=== PATIENT | female | born 1930 | race Caucasian/White ===

== ENCOUNTER 2016-06-12 08:48 | Emergency (ER) | payer OTHER, MEDICARE ==
[2016-06-12 08:54] VITALS: RESP 16
--- NOTE | 2016-06-12 09:14 | CPEKG ---
Heart Rate: 69 RR Interval: 870 P-R Interval: 200 QRSD Interval: 80 QT Interval: 412 QTC Interval: 442 P [place]: 65 QRS [place]: -11 T Wave [place]: 36 EKG Severity - BORDERLINE ECG - EKG Impression: SINUS RHYTHM EKG Impression: PROBABLE LEFT ATRIAL ABNORMALITY Electronically Signed By: Ottoniel Klien 12-Jun-2016 14:32:14
[2016-06-12 09:27] LABS: % IMMATURE GRANULYOCYTES 0.4 % (0.0-1.1); ABSOLUTE IMMATURE GRANULOCYTES 0.03 10^3/uL (0.00-0.10); ADD DIFF? NO; ADD MORPH? NO; ADD SCAN? NO; ATYPICAL LYMPHOCYTE FLAG 10 (0-99); FRAGMENT RBC FLAG 0 (0-99); HEMATOCRIT 46.4 % (38.0-47.0); HEMOGLOBIN 15.6 g/dL (12.6-16.3); LEFT SHIFT FLG 0 (0-99); LIPEMIA HEMOLYSIS FLAG 80 (0-99); MEAN CELL HEMOGLOBIN 33.7 pg (27.9-34.1); MEAN CELL HEMOGLOBIN CONCENTR. 33.6 g/dL (32.4-36.7); MEAN CELL VOLUME 100.2 fL (81.5-99.8); MEAN PLATELET VOLUME 10.3 fL (8.7-11.7); PLATELET CLUMPS FLAG 10 (0-99); PLATELET COUNT 146 10^3/uL (150-400); RED BLOOD CELL COUNT 4.63 10^6/uL (4.18-5.33); RED CELL DISTRIBUTION WIDTH 12.6 % (11.5-15.2)
[2016-06-12 09:55] LABS: ANION GAP 12 mEq/L (8-16); CALCIUM 9.9 mg/dL (8.5-10.4); CARBON DIOXIDE 26 mEq/l (22-31); CHLORIDE 104 mEq/L (97-110); CREATININE 0.8 mg/dL (0.6-1.0); GLOMERULAR FILTRATION RATE > 60; GLUCOSE 96 mg/dL (70-100); POTASSIUM 4.4 mEq/L (3.5-5.2); SODIUM 142 mEq/L (134-144)
[2016-06-12] MEDS ORDERED: NS 1,000 ML IV ONE (10:02)
[2016-06-12 10:22] LABS: COLOR YELLOW; LEUKOCYTE ESTERASE,URINE 3+ (NEGATIVE); NITRITE,URINE POSITIVE (NEGATIVE)
[2016-06-12 10:28] LABS: BACTERIA TRACE /hpf (NONE SEEN); RBC,URINE 15-25 /hpf (0-3); WBC,URINE 50-182 /hpf (0-3)
[2016-06-12] MEDS ORDERED: MECLIZINE HCL 25 MG TAB PO ONE (11:40)
[2016-06-12 11:58] VITALS: BP 161/106; PULSE 69; O2SAT 93
--- NOTE | 2016-06-12 13:15 | EDPHY ---
H & P Stated Complaint: DIZZY, DUFF SINCE LAST NIGHT Time Seen by Provider: 06/12/16 09:03 HPI/ROS: CHIEF COMPLAINT: Dizziness HISTORY OF PRESENT ILLNESS: The patient presents to the ED with a 1 day history of dizziness and mild vertigo. The patient denies any history of fall or trauma. She did complain of a mild headache. The patient does have a history of frequent urinary tract infections but denies any symptoms of dysuria currently. Patient has no complaints of abdominal pain, vomiting, diarrhea or recent medication changes. The patient does report some mild exacerbation of her symptoms with positional changes. The patient denies any additional acute complaints. REVIEW OF SYSTEMS: A comprehensive 10 point review of systems is otherwise negative aside from elements mentioned in the history of present illness. Source: Patient Exam Limitations: No limitations - Personal History Current Tetanus/Diphtheria Vaccine: Yes Current Tetanus Diphtheria and Acellular Pertussis (TDAP): Yes Tetanus Vaccine Date: 2012 - Medical/Surgical History Hx Asthma: No Hx Chronic Respiratory Disease: No Hx Diabetes: No Hx Cardiac Disease: Yes Hx Renal Disease: No Hx Cirrhosis: No Hx Alcoholism: No Hx HIV/AIDS: No Hx Splenectomy or Spleen Trauma: No Other PMH: HTN, Hyperlipidemia, Right breast cancer, 2 bladder surgeries, 2 back surgeries, hysterectomy - Social History Smoking Status: Never smoked - Physical Exam Exam: General Appearance: Alert, no distress Eyes: Pupils equal and round no pallor or injection ENT, Mouth: Mucous membranes moist Respiratory: There are no retractions, lungs are clear to auscultation Cardiovascular: Regular rate and rhythm Gastrointestinal: Abdomen is soft and nontender, no masses, bowel sounds normal Neurological: A&O, normal motor function, normal sensory exam, normal cranial nerves Skin: Warm and dry, no rashes Musculoskeletal: Neck is supple nontender Extremities: symmetrical, full range of motion Constitutional: Initial Vital Signs Heart Rate 78 06/12/16 08:49 Respiratory Rate 16 06/12/16 08:49 Blood Pressure 212/104 H 06/12/16 08:49 O2 Sat (%) 92 06/12/16 08:49 O2 Delivery Mode Room Air O2 (L/minute) 2 Allergies/Adverse Reactions: codeine [Codeine] Allergy (Unknown, Verified 04/06/15 12:07) morphine [Morphine] Allergy (Unknown, Verified 04/06/15 12:07) Penicillins Allergy (Unknown, Verified 04/06/15 12:07) acetaminophen [From Vicodin] Allergy (Verified 04/06/15 12:07) hydrocodone bitartrate [From Vicodin] Allergy (Verified 04/06/15 12:07) Home Medications: Medication Instructions Recorded Carvedilol [Coreg (*)] 6.25 mg PO BIDMEAL 11/26/12 Lisinopril [Zestril 5 mg (*)] 5 mg PO HS 11/26/12 Simvastatin [Zocor 40 mg] 40 mg PO DAILY18 11/26/12 Acetaminophen [Tylenol ES 500 mg 1,000 mg PO Q6 06/17/13 (*)] celeCOXIB [Celebrex (*)] 200 mg PO DAILY 06/17/13 Aspirin EC [Aspirin EC 81 mg (*)] 81 mg PO DAILY 03/20/15 Herbals/Supplements -Info Only 1 ea PO DAILY 03/20/15 Multivitamins [Multivitamin (*)] 1 each PO DAILY 03/20/15 Ondansetron Odt [Zofran Odt 4 mg 4 mg PO Q4PRN PRN #7 tab 04/06/15 (*)] Sulfamethoxazole-Tmp Inj 04/06/15 Cephalexin [Keflex (*)] 500 mg PO QID #24 cap 04/17/15 Cephalexin [Keflex] 500 mg PO TID #15 cap 06/12/16 Medical Decision Making - Diagnostics EKG Interpretation: EKG: Complete interpretation has been separately recorded in the [facility] archive. Summary impression: Sinus rhythm Imaging: CT head without contrast: Negative for intracranial hemorrhage or other acute abnormalities. Study results reviewed by myself and discussed with Dr. Nabeel Richey. ED Course/Re-evaluation: The patient presents to the ED with complaints of vague dizziness. The patient has no evidence of obvious nystagmus on exam. I find her neurologic examination to be within normal limits. Patient does complain of a mild headache, given this fact she was taken for a CT scan of her brain to exclude intracranial hemorrhage which was negative. Patient received IV fluids in the emergency department. She is noted to have evidence of a urinary tract infection despite the fact that she is asymptomatic. The patient will be started on Keflex for the next 5 days to treat her for possible UTI as an etiology of her symptoms. The patient had multiple examinations by myself in the ED over a 3 hour period is feeling much better. She continues to have a normal neurologic examination in stable vital signs. There has been no arrhythmias noted in the ED. She has no evidence of peripheral vertigo. Differential Diagnosis: Differential diagnosis considered includes metabolic abnormality, dehydration, urinary tract infection, stroke, intracranial hemorrhage, medication side effect - Data Points Laboratory Results: Laboratory Results 06/12/16 09:15 06/12/16 09:15 06/12/16 06/12/16 06/12/16 10:05 09:15 09:15 WBC 7.02 10^3/uL 10^3/uL (3.80-9.50) RBC 4.63 10^6/uL 10^6/uL (4.18-5.33) Hgb 15.6 g/dL g/dL (12.6-16.3) Hct 46.4 % % (38.0-47.0) MCV 100.2 fL H fL (81.5-99.8) MCH 33.7 pg pg (27.9-34.1) MCHC 33.6 g/dL g/dL (32.4-36.7) RDW 12.6 % % (11.5-15.2) Plt Count 146 10^3/uL L 10^3/uL (150-400) MPV 10.3 fL fL (8.7-11.7) Neut % (Auto) 68.5 % % (39.3-74.2) Lymph % (Auto) 15.4 % % (15.0-45.0) [place] % (Auto) 9.1 % % (4.5-13.0) Eos % (Auto) 6.0 % % (0.6-7.6) Baso % (Auto) 0.6 % % (0.3-1.7) Nucleat RBC Rel Count 0.0 % % (0.0-0.2) Absolute Neuts (auto) 4.81 10^3/uL 10^3/uL (1.70-6.50) Absolute Lymphs (auto) 1.08 10^3/uL 10^3/uL (1.00-3.00) Absolute Monos (auto) 0.64 10^3/uL 10^3/uL (0.30-0.80) Absolute Eos (auto) 0.42 10^3/uL H 10^3/uL (0.03-0.40) Absolute Basos (auto) 0.04 10^3/uL 10^3/uL (0.02-0.10) Absolute Nucleated RBC 0.00 10^3/uL 10^3/uL (0-0.01) Immature Gran % 0.4 % % (0.0-1.1) Immature Gran # 0.03 10^3/uL 10^3/uL (0.00-0.10) Sodium 142 mEq/L mEq/L (134-144) Potassium 4.4 mEq/L mEq/L (3.5-5.2) Chloride 104 mEq/L mEq/L (97-110) Carbon Dioxide 26 mEq/l mEq/l (22-31) Anion Gap 12 mEq/L mEq/L (8-16) BUN 16 mg/dL mg/dL (7-23) Creatinine 0.8 mg/dL mg/dL (0.6-1.0) Estimated GFR > 60 Glucose 96 mg/dL mg/dL (70-100) Calcium 9.9 mg/dL mg/dL (8.5-10.4) Urine Color YELLOW Urine Appearance HAZY Urine pH 7.0 (5.0-7.5) Ur Specific [place] 1.011 (1.002-1.030) Urine Protein NEGATIVE (NEGATIVE) Urine Ketones NEGATIVE (NEGATIVE) Urine Blood NEGATIVE (NEGATIVE) Urine Nitrate POSITIVE H (NEGATIVE) Urine Bilirubin NEGATIVE (NEGATIVE) Urine Urobilinogen NEGATIVE EU EU (0.2-1.0) Ur Leukocyte Esterase 3+ H (NEGATIVE) Urine RBC 15-25 /hpf H /hpf (0-3) Urine WBC 50-182 /hpf H /hpf (0-3) Ur Epithelial Cells TRACE /lpf /lpf (NONE-1+) Urine Bacteria TRACE /hpf H /hpf (NONE SEEN) Ur Culture Indicated? INDICATED H (NI) Urine Glucose NEGATIVE (NEGATIVE) Medications Given: Discontinued Medications Sodium Chloride (Ns) 1,000 mls @ 0 mls/hr IV ONCE ONE PRN Reason: Wide Open Stop: 06/12/16 10:03 Last Admin: 06/12/16 11:43 Dose: 1,000 mls Meclizine HCl (Meclizine Hcl) 25 mg PO EDNOW ONE Stop: 06/12/16 11:41 Last Admin: 06/12/16 11:57 Dose: 25 mg Departure - Departure Disposition: Home, Routine, Self-Care Clinical Impression: Urinary tract infection Condition: Good Instructions: Urinary Tract Infection in Women (ED) Additional Instructions: 1. Please take antibiotics as directed for next 5 days. 2. Please return to the emergency department for any worsening symptoms, severe headache, numbness, weakness or other concerns. Referrals: Avery Girard MD [Primary Care Provider] - As per Instructions Prescriptions: Cephalexin [Keflex] 500 mg PO TID #15 cap
== END 2016-06-12 12:55 | disposition home or self-care (01) ==
DX: N39.0 Urinary tract infection, site not specified (principal); I10 Essential (primary) hypertension; B96.89 Other specified bacterial agents as the cause of diseases classified elsewhere; Z85.3 Personal history of malignant neoplasm of breast; Z79.82 Long term (current) use of aspirin

== ENCOUNTER 2016-06-17 14:49 | Emergency (ER) | payer OTHER, MEDICARE ==
[2016-06-17 15:26] VITALS: RESP 16; TEMP 97.5
--- NOTE | 2016-06-17 15:55 | EDPHY ---
H & P Time Seen by Provider: 06/17/16 15:54 HPI/ROS: CHIEF COMPLAINT: back pain. HISTORY OF PRESENT ILLNESS: This is an 86-year-old female with a history of recurrent UTIs and diagnosed with UTI on Saturday who presents with continued back pain. She has been compliant with her Keflex. The pain radiates around to her groin. She is concerned she still has a urine infection and has completed the entire Keflex course. She denies increased urinary frequency, hematuria, or fever. Her symptoms are identical to her previous UTIs. REVIEW OF SYSTEMS: A complete 10-point review of systems was performed and is negative except for those items mentioned in the HPI. Past Medical/Surgical History: Hypertension, hyperlipidemia, hysterectomy, back surgeries, UTI. Social History: Nonsmoker. Smoking Status: Never smoked Physical Exam: General Appearance: Alert, no distress Eyes: Pupils equal and round, no conjunctival pallor or injection ENT, Mouth: Mucous membranes moist Neck: Normal inspection Respiratory: Lungs are clear to auscultation Cardiovascular: Regular rate and rhythm Gastrointestinal: Abdomen is soft and non-tender Neurological: A&O, nonfocal, normal gait Skin: Warm and dry, no rash Extremities: Nontender, no pedal edema Psychiatric: Mood and affect normal Constitutional: Initial Vital Signs Temperature (C) 36.4 C 06/17/16 15:24 Heart Rate 68 06/17/16 15:24 Respiratory Rate 16 06/17/16 15:24 Blood Pressure 147/89 H 06/17/16 15:24 O2 Sat (%) 93 06/17/16 15:24 O2 Delivery Mode Room Air Allergies/Adverse Reactions: codeine [Codeine] Allergy (Unknown, Verified 06/17/16 15:26) morphine [Morphine] Allergy (Unknown, Verified 06/17/16 15:26) Penicillins Allergy (Unknown, Verified 06/17/16 15:26) acetaminophen [From Vicodin] Allergy (Verified 06/17/16 15:26) hydrocodone bitartrate [From Vicodin] Allergy (Verified 06/17/16 15:26) Home Medications: Medication Instructions Recorded Carvedilol [Coreg (*)] 6.25 mg PO BIDMEAL 11/26/12 Lisinopril [Zestril 5 mg (*)] 5 mg PO HS 11/26/12 Simvastatin [Zocor 40 mg] 40 mg PO DAILY18 11/26/12 Acetaminophen [Tylenol ES 500 mg 1,000 mg PO Q6 06/17/13 (*)] celeCOXIB [Celebrex (*)] 200 mg PO DAILY 06/17/13 Aspirin EC [Aspirin EC 81 mg (*)] 81 mg PO DAILY 03/20/15 Herbals/Supplements -Info Only 1 ea PO DAILY 03/20/15 Multivitamins [Multivitamin (*)] 1 each PO DAILY 03/20/15 Ondansetron Odt [Zofran Odt 4 mg 4 mg PO Q4PRN PRN #7 tab 04/06/15 (*)] Sulfamethoxazole-Tmp Inj 04/06/15 Cephalexin [Keflex (*)] 500 mg PO QID #24 cap 04/17/15 Cephalexin [Keflex] 500 mg PO TID #15 cap 06/12/16 levOFLOXACIN [levAQUIN (*)] 750 mg PO DAILY #6 tab 06/17/16 Medical Decision Making ED Course/Re-evaluation: This patient presents with persistent urinary tract infection symptoms after recent course of Keflex. Urine culture reviewed and revealed E coli, pansensitive, although somewhat less sensitive to Keflex. I will place her on a course of Levaquin given that she has her typical urinary tract infection symptoms. Urine culture sent. Differential Diagnosis: Differential diagnosis includes though it is not limited to appendicitis, cholecystitis, diverticulitis, pyelonephritis, bowel perforation, small bowel obstruction. - Data Points Medications Given: Discontinued Medications Acetaminophen (Tylenol) 650 mg PO EDNOW ONE Stop: 06/17/16 16:34 Last Admin: 06/17/16 16:44 Dose: 650 mg Levofloxacin (Levaquin) 750 mg PO EDNOW ONE PRN Reason: Protocol Stop: 06/17/16 16:41 Last Admin: 06/17/16 16:57 Dose: 750 mg Departure - Departure Disposition: Home, Routine, Self-Care Clinical Impression: UTI (urinary tract infection) Condition: Good Instructions: Urinary Tract Infection in Women (ED) Additional Instructions: Take Levaquin as prescribed. Follow up with your primary care provider in the next 3-4 days if symptoms are not improving. Return to the emergency department if you experience any serious worsening of condition. Referrals: Avery Girard MD [Primary Care Provider] - As per Instructions Prescriptions: levOFLOXACIN [levAQUIN (*)] 750 mg PO DAILY #6 tab Report Scribed for: Sandra Avery Report Scribed by: Nicola Stewart Date of Report: 06/17/16 Time of Report: 15:55 Physician Review and Approval Statement: 06/17/16 16:01 Portions of this note were transcribed by a adjunct faculty for medical terminology. I personally performed a history, physical exam, medical decision making, and confirmed accuracy of information the transcribed note.
[2016-06-17] MEDS ORDERED: ACETAMINOPHEN 325 MG TAB PO ONE (16:33)
[2016-06-17 16:34] LABS: COLOR YELLOW; LEUKOCYTE ESTERASE,URINE TRACE (NEGATIVE); NITRITE,URINE NEGATIVE (NEGATIVE)
[2016-06-17] MEDS ORDERED: ACETAMINOPHEN 325 MG TAB ONE (16:34)
[2016-06-17] MEDS ORDERED: metroNIDAZOLE 500 MG TAB ONE (16:47)
[2016-06-17 16:51] LABS: BACTERIA TRACE /hpf (NONE SEEN); MUCUS TRACE /lpf (NONE-1+)
[2016-06-17 16:58] VITALS: BP 139/78; PULSE 82; O2SAT 94
== END 2016-06-17 16:58 | disposition home or self-care (01) ==
DX: N39.0 Urinary tract infection, site not specified (principal); B96.89 Other specified bacterial agents as the cause of diseases classified elsewhere; I10 Essential (primary) hypertension; Z79.82 Long term (current) use of aspirin

== ENCOUNTER → 2016-07-03 | Outpatient (CLI) | payer OTHER, MEDICARE | LOC: FIMAGING 10:02 | PROVIDERS: ATTEND Internal Medicine | DX: N39.0 Urinary tract infection, site not specified (principal) ==

== ENCOUNTER → 2016-08-09 | Outpatient (CLI) | payer OTHER, MEDICARE | LOC: BHFA 13:30 | PROVIDERS: ATTEND Internal Medicine Interventional Cardiology | DX: I48.91 Unspecified atrial fibrillation (principal); I10 Essential (primary) hypertension; E78.5 Hyperlipidemia, unspecified ==

== ENCOUNTER 2016-10-30 14:15 | Observation (INO) | payer OTHER, MEDICARE ==
--- NOTE | 2016-10-30 16:08 | CPEKG ---
Heart Rate: 73 RR Interval: 822 P-R Interval: 200 QRSD Interval: 76 QT Interval: 396 QTC Interval: 437 P [place]: 63 QRS [place]: -51 T Wave [place]: 43 EKG Severity - ABNORMAL ECG - EKG Impression: SINUS RHYTHM EKG Impression: PROBABLE LEFT ATRIAL ABNORMALITY EKG Impression: LEFT ANTERIOR FASCICULAR BLOCK EKG Impression: BORDERLINE R WAVE PROGRESSION, ANTERIOR LEADS Electronically Signed By: Elizabeth Grimaldo 30-Oct-2016 20:44:33
[2016-10-30 16:33] LABS: % IMMATURE GRANULYOCYTES 0.4 % (0.0-1.1); ABSOLUTE IMMATURE GRANULOCYTES 0.03 10^3/uL (0.00-0.10); ADD DIFF? NO; ADD MORPH? NO; ADD SCAN? NO; ATYPICAL LYMPHOCYTE FLAG 0 (0-99); FRAGMENT RBC FLAG 0 (0-99); HEMATOCRIT 47.8 % (38.0-47.0); HEMOGLOBIN 15.9 g/dL (12.6-16.3); LEFT SHIFT FLG 0 (0-99); LIPEMIA HEMOLYSIS FLAG 80 (0-99); MEAN CELL HEMOGLOBIN 34.8 pg (27.9-34.1); MEAN CELL HEMOGLOBIN CONCENTR. 33.3 g/dL (32.4-36.7); MEAN CELL VOLUME 104.6 fL (81.5-99.8); MEAN PLATELET VOLUME 10.5 fL (8.7-11.7); PLATELET CLUMPS FLAG 0 (0-99); PLATELET COUNT 133 10^3/uL (150-400); RED BLOOD CELL COUNT 4.57 10^6/uL (4.18-5.33); RED CELL DISTRIBUTION WIDTH 13.2 % (11.5-15.2)
[2016-10-30] MEDS ORDERED: LABETALOL HCL 50 MG/10 ML SYR IVP ONE (16:34)
--- NOTE | 2016-10-30 16:35 | EDPHY ---
H & P Stated Complaint: DIZZY, RECENT FALLS HPI/ROS: CHIEF COMPLAINT: Lightheaded, unsteady HISTORY OF PRESENT ILLNESS: Patient complains of 6 days history of feeling lightheaded and unsteady on her feet. She reports a mechanical fall on the day but did not strike her head. Since then she has felt unsteady and lightheaded. She has not been dizzy, nor does she describes a spinning sensation. She has had no headache, neck pain, chest pain or back pain. No abdominal urinary complaints. No shortness of breath. No fever chills. She denies actual visual disturbance but does have some nausea. denies any facial droop or unilateral complaints. Symptoms are worse when she attempts to move, to the point that she has to hold her spouse is hand or she will fall over. No other associated complaints or modifying factors. REVIEW OF SYSTEMS: Ten systems reviewed and are negative unless otherwise noted in the HPI PAST MEDICAL HISTORY: Hypertension, arthritis, recurrent UTIs SOCIAL HISTORY: Nonsmoker. Lives at home with her FAMILY HISTORY: Noncontributory EXAMINATION General Appearance: Alert, no distress Head: normocephalic, atraumatic Eyes: Pupils equal and round, no conjunctival pallor or injection. No nystagmus. EOMs intact. ENT, Mouth: Mucous membranes moist Neck: Normal inspection, supple, non-tender Respiratory: Lungs are clear to auscultation. No wheezing, rhonchi or crackles. Cardiovascular: Regular rate and rhythm. Grade 1 systolic murmur Gastrointestinal: Abdomen is soft and nontender Back: non-tender, no bony abnormalities Neurological: GCS 15. Cranial nerves 2-12 grossly intact. A&O, nonfocal. No pronator drift. No dysmetria. Unsteady gait Skin: Warm and dry, no rash Extremities: Nontender, no pedal edema Psychiatric: Mood and affect normal DIFFERENTIAL DIAGNOSES: Including but not limited to hypertensive emergency, hypertensive urgency, stroke, vertebrobasilar syndrome, ACS, vertigo, dehydration, UTI, weakness MDM: 4:25 p.m. Lightheadedness with recent falls and feeling unsteady on her feet. She is ataxic by my examination. Blood pressure was 183 systolic upon arrival, an 221 systolic during my examination. Will check a manual blood pressure to verify this. I have ordered CT scan of the head, chest x-ray and laboratory studies. She is awake and alert and not encephalopathic. No chest pain. EKG is unremarkable. 5:20 p.m. Laboratory studies are within normal limits. Notified at this time by Dr. Nicholas. CT scan of the head reveals no acute findings. There are white matter changes. No mass or bleed evident. I have re-evaluated the patient. She remains ataxic and unsteady. Blood pressure is currently 199/89. Heart rate is in the 60s. Proceed with admission to the hospital for further care. 5:30 p.m. I discussed case with Dr. Simons. He will admit the patient to the his service , he is requesting PCU bed an observation status. He has also requested MRI of the brain without contrast, MRA of the head and neck. These have been ordered. She can go to the floor and have these tests done while in her inpatient bed. She is admitted in stable condition comfortable this plan. EKG interpreted by: Dr. Grimaldo SUPERVISION: Case discussed with Dr. Grimaldo and he has personally examine the patient. Source: Patient, Family Exam Limitations: No limitations - Personal History Current Tetanus/Diphtheria Vaccine: Yes Current Tetanus Diphtheria and Acellular Pertussis (TDAP): Yes Tetanus Vaccine Date: 2012 - Medical/Surgical History Hx Asthma: No Hx Chronic Respiratory Disease: No Hx Diabetes: No Hx Cardiac Disease: No Hx Renal Disease: No Hx Cirrhosis: No Hx Alcoholism: No Hx HIV/AIDS: No Hx Splenectomy or Spleen Trauma: No Other PMH: HTN, Hyperlipidemia, Right breast cancer, 2 bladder surgeries, 2 back surgeries, hysterectomy - Social History Smoking Status: Never smoked Constitutional: Initial Vital Signs Temperature (C) 98.4 F 10/30/16 14:17 Heart Rate 78 10/30/16 14:17 Respiratory Rate 14 10/30/16 14:17 Blood Pressure 183/119 H 10/30/16 14:17 O2 Sat (%) 95 10/30/16 14:17 O2 Delivery Mode Room Air Allergies/Adverse Reactions: codeine [Codeine] Allergy (Unknown, Verified 10/30/16 14:17) morphine [Morphine] Allergy (Unknown, Verified 10/30/16 14:17) Penicillins Allergy (Unknown, Verified 10/30/16 14:17) acetaminophen [From Vicodin] Allergy (Verified 10/30/16 14:17) hydrocodone bitartrate [From Vicodin] Allergy (Verified 10/30/16 14:17) Home Medications: Medication Instructions Recorded Carvedilol [Coreg (*)] 6.25 mg PO BIDMEAL 11/26/12 Simvastatin [Zocor 40 mg] 40 mg PO DAILY18 11/26/12 celeCOXIB [Celebrex (*)] 200 mg PO DAILY 06/17/13 Multivitamins [Multivitamin (*)] 1 each PO DAILY 03/20/15 Acetaminophen [Tylenol ES 500 mg 500 mg PO Q6 PRN 10/30/16 (*)] Lisinopril [Zestril 10 mg (*)] 10 mg PO DAILY 10/30/16 Trimethoprim [TRIMPEX 100MG (*)] 100 mg PO DAILY 10/30/16 Medical Decision Making - Diagnostics Imaging Results: Imaging Impressions Chest X-Ray 10/30/16 16:26 Impression: Nothing acute identified. Head CT 10/30/16 16:26 Impression: 1. Mild atrophy. 2. No acute hemorrhage, hydrocephalus, or mass effect. 3. Cerebrovascular atherosclerosis. 4. No definite acute infarct. 5. Severe microvascular ischemic gliosis. 6. Consider MRI of the brain without and with contrast enhancement, if there is continued clinical concern. Findings and recommendations discussed with Emergency Department physician, Efren Stout PA-C, at 1724 hours on October 30, 2016. Final report concurs with initial preliminary interpretation. - Data Points Laboratory Results: Laboratory Results 10/30/16 16:10 10/30/16 16:10 10/30/16 10/30/16 10/30/16 17:14 16:10 16:10 WBC RBC Hgb Hct MCV MCH MCHC RDW Plt Count MPV Neut % (Auto) Lymph % (Auto) [place] % (Auto) Eos % (Auto) Baso % (Auto) Nucleat RBC Rel Count Absolute Neuts (auto) Absolute Lymphs (auto) Absolute Monos (auto) Absolute Eos (auto) Absolute Basos (auto) Absolute Nucleated RBC Immature Gran % Immature Gran # PT 13.1 SEC SEC (12.0-15.0) INR 1.00 (0.83-1.16) APTT 29.1 SEC SEC (23.0-38.0) Sodium 136 mEq/L mEq/L (134-144) Potassium 5.0 mEq/L mEq/L (3.5-5.2) Chloride 101 mEq/L mEq/L (97-110) Carbon Dioxide 21 mEq/l L mEq/l (22-31) Anion Gap 14 mEq/L mEq/L (8-16) BUN 18 mg/dL mg/dL (7-23) Creatinine 1.0 mg/dL mg/dL (0.6-1.0) Estimated GFR 53 Glucose 97 mg/dL mg/dL (70-100) Calcium 10.3 mg/dL mg/dL (8.5-10.4) Total Bilirubin 0.7 mg/dL mg/dL (0.1-1.4) Conjugated Bilirubin 0.4 mg/dL mg/dL (0.0-0.5) Unconjugated Bilirubin 0.3 mg/dL mg/dL (0.0-1.1) AST 34 IU/L IU/L (14-46) ALT 37 IU/L IU/L (9-52) Alkaline Phosphatase 54 IU/L IU/L (38-126) Troponin I < 0.012 ng/mL ng/mL (0-0.034) Total Protein 8.1 g/dL g/dL (6.3-8.2) Albumin 5.0 g/dL g/dL (3.5-5.0) Lipase 118.0 IU/L IU/L (23-300) Urine Color YELLOW Urine Appearance CLEAR Urine pH 5.0 (5.0-7.5) Ur Specific [place] 1.009 (1.002-1.030) Urine Protein NEGATIVE (NEGATIVE) Urine Ketones NEGATIVE (NEGATIVE) Urine Blood NEGATIVE (NEGATIVE) Urine Nitrate NEGATIVE (NEGATIVE) Urine Bilirubin NEGATIVE (NEGATIVE) Urine Urobilinogen NEGATIVE EU EU (0.2-1.0) Ur Leukocyte Esterase 1+ H (NEGATIVE) Urine RBC 1-3 /hpf /hpf (0-3) Urine WBC 3-5 /hpf H /hpf (0-3) Ur Epithelial Cells TRACE /lpf /lpf (NONE-1+) Urine Mucus TRACE /lpf /lpf (NONE-1+) Urine Glucose NEGATIVE (NEGATIVE) 10/30/16 16:10 WBC 6.77 10^3/uL 10^3/uL (3.80-9.50) RBC 4.57 10^6/uL 10^6/uL (4.18-5.33) Hgb 15.9 g/dL g/dL (12.6-16.3) Hct 47.8 % H % (38.0-47.0) MCV 104.6 fL H fL (81.5-99.8) MCH 34.8 pg H pg (27.9-34.1) MCHC 33.3 g/dL g/dL (32.4-36.7) RDW 13.2 % % (11.5-15.2) Plt Count 133 10^3/uL L 10^3/uL (150-400) MPV 10.5 fL fL (8.7-11.7) Neut % (Auto) 67.1 % % (39.3-74.2) Lymph % (Auto) 22.7 % % (15.0-45.0) [place] % (Auto) 7.2 % % (4.5-13.0) Eos % (Auto) 2.2 % % (0.6-7.6) Baso % (Auto) 0.4 % % (0.3-1.7) Nucleat RBC Rel Count 0.0 % % (0.0-0.2) Absolute Neuts (auto) 4.53 10^3/uL 10^3/uL (1.70-6.50) Absolute Lymphs (auto) 1.54 10^3/uL 10^3/uL (1.00-3.00) Absolute Monos (auto) 0.49 10^3/uL 10^3/uL (0.30-0.80) Absolute Eos (auto) 0.15 10^3/uL 10^3/uL (0.03-0.40) Absolute Basos (auto) 0.03 10^3/uL 10^3/uL (0.02-0.10) Absolute Nucleated RBC 0.00 10^3/uL 10^3/uL (0-0.01) Immature Gran % 0.4 % % (0.0-1.1) Immature Gran # 0.03 10^3/uL 10^3/uL (0.00-0.10) PT INR APTT Sodium Potassium Chloride Carbon Dioxide Anion Gap BUN Creatinine Estimated GFR Glucose Calcium Total Bilirubin Conjugated Bilirubin Unconjugated Bilirubin AST ALT Alkaline Phosphatase Troponin I Total Protein Albumin Lipase Urine Color Urine Appearance Urine pH Ur Specific [place] Urine Protein Urine Ketones Urine Blood Urine Nitrate Urine Bilirubin Urine Urobilinogen Ur Leukocyte Esterase Urine RBC Urine WBC Ur Epithelial Cells Urine Mucus Urine Glucose Medications Given: Discontinued Medications Labetalol HCl (Trandate Injection) 10 mg IVP ONCE ONE Stop: 10/30/16 17:01 Last Admin: 10/30/16 16:57 Dose: 10 mg Departure - Departure Disposition: [facility] Inpatient Acute Clinical Impression: Ataxia, Hypertensive urgency Condition: Good
[2016-10-30 16:44] LABS: ALANINE AMINOTRANSFERASE 37 IU/L (9-52); ALKALINE PHOSPHATASE 54 IU/L (38-126); ANION GAP 14 mEq/L (8-16); ASPARTATE AMINOTRANSFERASE 34 IU/L (14-46); BILIRUBIN,TOTAL 0.7 mg/dL (0.1-1.4); BILIRUBIN-CONJUGATED 0.4 mg/dL (0.0-0.5); BILIRUBIN-UNCONJUGATED 0.3 mg/dL (0.0-1.1); CALCIUM 10.3 mg/dL (8.5-10.4); CARBON DIOXIDE 21 mEq/l (22-31); CHLORIDE 101 mEq/L (97-110); GLOMERULAR FILTRATION RATE 53; GLUCOSE 97 mg/dL (70-100); SODIUM 136 mEq/L (134-144); TOTAL PROTEIN 8.1 g/dL (6.3-8.2)
[2016-10-30 16:45] LABS: PROTIME(PATIENT) 13.1 SEC (12.0-15.0)
[2016-10-30 16:46] LABS: APTT 29.1 SEC (23.0-38.0)
[2016-10-30 16:56] LABS: TROPONIN I < 0.012 ng/mL (0-0.034)
[2016-10-30] MEDS ORDERED: LABETALOL HCL 5 MG/ML 20 ML MDV IVP ONE (17:00)
[2016-10-30 17:23] LABS: COLOR YELLOW; LEUKOCYTE ESTERASE,URINE 1+ (NEGATIVE); NITRITE,URINE NEGATIVE (NEGATIVE)
[2016-10-30 17:25] LABS: MUCUS TRACE /lpf (NONE-1+)
[2016-10-30] MEDS ORDERED: LORazepam 2 MG/ML INJ IVP ONE (18:10)
[2016-10-30] MEDS ORDERED: LORazepam 2 MG/ML INJ ONE (18:11)
[2016-10-30] MEDS ORDERED: GADOBUTROL 10 ML VIAL IVP ONE (18:13)
[2016-10-30] MEDS ORDERED: ONDANSETRON DISINTEGRATING 4 MG TAB PO PRN (19:01)
[2016-10-30] MEDS ORDERED: ONDANSETRON 4 MG/2 ML VIAL IVP PRN (19:01)
[2016-10-30] MEDS ORDERED: MECLIZINE HCL 25 MG TAB PO ONE (19:05)
[2016-10-30] MEDS ORDERED: MECLIZINE HCL 25 MG TAB PO PRN (19:05)
[2016-10-30] MEDS ORDERED: hydrALAZINE 20 MG/ML VIAL IVP PRN (19:07)
[2016-10-30] MEDS ORDERED: LISINOPRIL 10 MG TAB PO ONE (19:15)
--- NOTE | 2016-10-30 20:31 | PDGENHP ---
History and Physical - Chief Complaint Acute ataxia - History of Present Illness primary care provider: Dr. Girard Primary digital media designer: Dr. Mora HPI: 86-year-old female presents with acute ataxia characterized as lightheadedness with unsteady gait and associated nausea onset of symptoms approximately 6 days ago and they reportedly quite sudden in their onset. reports that resulted in a mechanical fall. She denies striking her head or losing consciousness. Duration of the unsteady gait has been persistent thereafter. Patient reports exacerbation with standing and movement, somewhat alleviated by remaining supine. Patient has not yet sought medical attention for this issue. She reports she has been eating and drinking normally. She has been taking all of her home medications as prescribed. She otherwise denies any infectious symptoms. She denies any palpitations, headache, visual changes. History Information - Allergies/Home Medication List Allergies/Adverse Reactions: codeine [Codeine] Allergy (Unknown, Verified 10/30/16 14:17) morphine [Morphine] Allergy (Unknown, Verified 10/30/16 14:17) Penicillins Allergy (Unknown, Verified 10/30/16 14:17) hydrocodone bitartrate [From Vicodin] Allergy (Verified 10/30/16 14:17) Home Medications: Carvedilol [Coreg (*)] 6.25 mg PO BIDMEAL 11/26/12 [Last Taken 10/30/16 1 TAB] Simvastatin [Zocor 40 mg] 40 mg PO DAILY18 11/26/12 [Last Taken 10/29/16] celeCOXIB [Celebrex (*)] 200 mg PO DAILY 06/17/13 [Last Taken 10/30/16] Multivitamins [Multivitamin (*)] 1 each PO DAILY 03/20/15 [Last Taken 10/30/16] Acetaminophen [Tylenol ES 500 mg (*)] 500 mg PO Q6 PRN 10/30/16 [Last Taken 03/08] Lisinopril [Zestril 10 mg (*)] 10 mg PO DAILY 10/30/16 [Last Taken 10/30/16] Trimethoprim [TRIMPEX 100MG (*)] 100 mg PO DAILY 10/30/16 [Last Taken 10/30/16] I have personally reviewed and updated: family history, medical history, social history, surgical history - Past Medical History atrial fibrillation Additional medical history: Aortic insufficiency. Hypertension. Hyperlipidemia. Peptic ulcer disease. Osteoarthritis. Coronary artery disease. Vasovagal syncope in 2013. Breast cancer. Recurrent urinary tract infections - Surgical History Additional surgical history: bladder. Hysterectomy. Back surgery x2. Right breast lumpectomy. Rotator cuff - Family History Additional family history: colon cancer and breast cancer both her family - Social History Smoking Status: Never smoked Alcohol Use: Rarely Drug Use: None Additional social history: patient is normally able to ambulate and transfer independently Review of Systems ROS: 10pt was reviewed & negative except for what was stated in HPI & below Gastrointestinal: Reports: nausea Neurological: Reports: other ( dizziness, ataxia) Physical Exam Temp Pulse Resp BP Pulse Ox 36.9 C 90 16 171/107 H 95 10/30/16 14:17 10/30/16 17:18 10/30/16 16:00 10/30/16 17:33 10/30/16 14:17 Constitutional: no apparent distress, appears nourished, not in pain, other ( elderly appearing), No uncomfortable Eyes: PERRL, anicteric sclera, EOMI Ears, Nose, Mouth, Throat: moist mucous membranes, hearing normal, ears appear normal, no oral mucosal ulcers Cardiovascular: regular rate and rhythym, systolic murmur ( 2/6 at the left sternal border), No carotid bruit, No tachycardia, No edema Respiratory: no respiratory distress, no rales or rhonchi, clear to auscultation Gastrointestinal: normoactive bowel sounds, soft, non-tender abdomen, no palpable masses Genitourinary: no bladder fullness, no bladder tenderness Skin: warm, normal color, no rashes or abrasions, no fluctuance, no induration, No mottled Musculoskeletal: other ( full range of motion of the neck without any pain on flexion and rotation) Neurologic: AAOx3, sensation intact bilaterally, CN II-XII Intact, other ( normal [id number]), No weakness ( motor strength 5/5 bilateral upper and lower extremities) Psychiatric: interacting appropriately, not anxious, not encephalopathic, thought process linear, other ( 3/3 naming) Lab Data & Imaging Review 10/30/16 16:10 10/30/16 16:10 WBC 6.77 10^3/uL (3.80-9.50) 10/30/16 16:10 RBC 4.57 10^6/uL (4.18-5.33) 10/30/16 16:10 Hgb 15.9 g/dL (12.6-16.3) 10/30/16 16:10 Hct 47.8 % (38.0-47.0) H 10/30/16 16:10 MCV 104.6 fL (81.5-99.8) H 10/30/16 16:10 MCH 34.8 pg (27.9-34.1) H 10/30/16 16:10 MCHC 33.3 g/dL (32.4-36.7) 10/30/16 16:10 RDW 13.2 % (11.5-15.2) 10/30/16 16:10 Plt Count 133 10^3/uL (150-400) L 10/30/16 16:10 MPV 10.5 fL (8.7-11.7) 10/30/16 16:10 Neut % (Auto) 67.1 % (39.3-74.2) 10/30/16 16:10 Lymph % (Auto) 22.7 % (15.0-45.0) 10/30/16 16:10 [place] % (Auto) 7.2 % (4.5-13.0) 10/30/16 16:10 Eos % (Auto) 2.2 % (0.6-7.6) 10/30/16 16:10 Baso % (Auto) 0.4 % (0.3-1.7) 10/30/16 16:10 Nucleat RBC Rel Count 0.0 % (0.0-0.2) 10/30/16 16:10 Absolute Neuts (auto) 4.53 10^3/uL (1.70-6.50) 10/30/16 16:10 Absolute Lymphs (auto) 1.54 10^3/uL (1.00-3.00) 10/30/16 16:10 Absolute Monos (auto) 0.49 10^3/uL (0.30-0.80) 10/30/16 16:10 Absolute Eos (auto) 0.15 10^3/uL (0.03-0.40) 10/30/16 16:10 Absolute Basos (auto) 0.03 10^3/uL (0.02-0.10) 10/30/16 16:10 Absolute Nucleated RBC 0.00 10^3/uL (0-0.01) 10/30/16 16:10 Immature Gran % 0.4 % (0.0-1.1) 10/30/16 16:10 Immature Gran # 0.03 10^3/uL (0.00-0.10) 10/30/16 16:10 PT 13.1 SEC (12.0-15.0) 10/30/16 16:10 INR 1.00 (0.83-1.16) 10/30/16 16:10 APTT 29.1 SEC (23.0-38.0) 10/30/16 16:10 Sodium 136 mEq/L (134-144) 10/30/16 16:10 Potassium 5.0 mEq/L (3.5-5.2) 10/30/16 16:10 Chloride 101 mEq/L (97-110) 10/30/16 16:10 Carbon Dioxide 21 mEq/l (22-31) L 10/30/16 16:10 Anion Gap 14 mEq/L (8-16) 10/30/16 16:10 BUN 18 mg/dL (7-23) 10/30/16 16:10 Creatinine 1.0 mg/dL (0.6-1.0) 10/30/16 16:10 Estimated GFR 53 10/30/16 16:10 Glucose 97 mg/dL (70-100) 10/30/16 16:10 Calcium 10.3 mg/dL (8.5-10.4) 10/30/16 16:10 Total Bilirubin 0.7 mg/dL (0.1-1.4) 10/30/16 16:10 Conjugated Bilirubin 0.4 mg/dL (0.0-0.5) 10/30/16 16:10 Unconjugated Bilirubin 0.3 mg/dL (0.0-1.1) 10/30/16 16:10 AST 34 IU/L (14-46) 10/30/16 16:10 ALT 37 IU/L (9-52) 10/30/16 16:10 Alkaline Phosphatase 54 IU/L (38-126) 10/30/16 16:10 Troponin I < 0.012 ng/mL (0-0.034) 10/30/16 16:10 Total Protein 8.1 g/dL (6.3-8.2) 10/30/16 16:10 Albumin 5.0 g/dL (3.5-5.0) 10/30/16 16:10 Lipase 118.0 IU/L (23-300) 10/30/16 16:10 Urine Color YELLOW 10/30/16 17:14 Urine Appearance CLEAR 10/30/16 17:14 Urine pH 5.0 (5.0-7.5) 10/30/16 17:14 Ur Specific [place] 1.009 (1.002-1.030) 10/30/16 17:14 Urine Protein NEGATIVE (NEGATIVE) 10/30/16 17:14 Urine Ketones NEGATIVE (NEGATIVE) 10/30/16 17:14 Urine Blood NEGATIVE (NEGATIVE) 10/30/16 17:14 Urine Nitrate NEGATIVE (NEGATIVE) 10/30/16 17:14 Urine Bilirubin NEGATIVE (NEGATIVE) 10/30/16 17:14 Urine Urobilinogen NEGATIVE EU (0.2-1.0) 10/30/16 17:14 Ur Leukocyte Esterase 1+ (NEGATIVE) H 10/30/16 17:14 Urine RBC 1-3 /hpf (0-3) 10/30/16 17:14 Urine WBC 3-5 /hpf (0-3) H 10/30/16 17:14 Ur Epithelial Cells TRACE /lpf (NONE-1+) 10/30/16 17:14 Urine Mucus TRACE /lpf (NONE-1+) 10/30/16 17:14 Urine Glucose NEGATIVE (NEGATIVE) 10/30/16 17:14 Visualized and Interpreted Chest x-ray results: Yes Chest X-Ray results: no infiltrate Visualized and Interpreted EKG results: Yes EKG Interpretation: Positive for: other ( left anterior fascicular block with T- wave inversion in lead V2, Q-wave in 3 and AVF, poor R-wave progression in lead V3) Assessment & Plan Assessment: 86-year-old female presenting with acute ataxia in the setting of hypertensive urgency Plan: 1. Ataxia. Acute, new problem this provider, further workup indicated. Potential etiologies include benign positional paroxysmal vertigo versus posterior circulation occlusion versus orthostasis vs. Hypertensive symptoms. - MRI demonstrating extensive white matter disease per my discussion with Dr. Snow, he reports no overt CVA MRA demonstrates no posterior circulation defect - get orthostatics - treat systolic blood pressure with a goal less than 180 - continue to monitor on telemetry overnight - Neurology consultation in a.m. to help determine whether patient's symptoms are more likely secondary to extensive white matter disease versus hypertension related - give as-needed meclizine trial - get physical and occupational therapy evaluations 2. Chronic kidney disease stage 3. Baseline creatinine 1.0-1.1, currently within range 3. Atrial fibrillation. Unclear type, monitor on telemetry to ensure she has not been fluctuating in and out of AFib during the symptomatic. 4. Hypertensive urgency. No evidence of acute end-organ failure although her symptoms may be secondary to uncontrolled hypertension and the severity of her white matter disease on brain MRI most likely reflects untreated component of hypertension - increase her home dosage of lisinopril from 10 mg daily to 20 mg daily, initiate additional 10 mg at this time - continue home dosage of carvedilol - give IV hydralazine overnight for systolic blood pressures greater than 180 and gauge symptomatic effect 5. Coronary artery disease. Continue home medications Diet. Cardiac Prophylaxis. High risk patient, pharmacologic contraindicated given systolic blood pressures, placed on SCDs Code. Do not resuscitate per patient, is MPOA Disposition. Anticipated discharge is 10/31/2016, pending stabilization of conditions outlined above Patient is high medical complexity patient, high risk for worsening morbidity and/or mortality.
[2016-10-30] MEDS: ACETAMINOPHEN 500 MG TAB PO PRN (21:06)
[2016-10-31 05:09] LABS: ANION GAP 11 mEq/L (8-16); CALCIUM 9.6 mg/dL (8.5-10.4); CARBON DIOXIDE 24 mEq/l (22-31); CHLORIDE 104 mEq/L (97-110); GLOMERULAR FILTRATION RATE 53; GLUCOSE 77 mg/dL (70-100); POTASSIUM 4.3 mEq/L (3.5-5.2); SODIUM 139 mEq/L (134-144)
[2016-10-31] MEDS: CARVEDILOL 6.25 MG TAB PO SCH ×2 (08:35→18:01)
[2016-10-31] MEDS ORDERED: MULTIVITAMINS 1 EACH TAB PO SCH (09:00)
[2016-10-31] MEDS ORDERED: LISINOPRIL 20 MG TAB PO SCH (09:00)
[2016-10-31] MEDS ORDERED: TRIMETHOPRIM 100 MG TAB PO SCH (09:00)
[2016-10-31] MEDS: ACETAMINOPHEN 500 MG TAB PO PRN (11:47)
[2016-10-31 15:26] VITALS: RESP 20; TEMP 97.7; O2SAT 93
[2016-10-31] MEDS ORDERED: ATORVASTATIN CALCIUM 20 MG TAB PO SCH (18:00)
[2016-10-31 18:02] VITALS: BP 150/86; PULSE 85
--- NOTE | 2016-11-01 07:56 | GDS ---
[f rep st] DISCHARGE SUMMARY DISCHARGE DIAGNOSES: 1. Ataxia, resolved. 2. Hypertensive encephalopathy, resolved. 3. Accelerated hypertension, improved. 4. Chronic kidney disease stage 3, creatinine at baseline. 5. Coronary artery disease, stable. 6. History of atrial fibrillation of unclear chronicity. She is in normal sinus rhythm here. HISTORY: For details, please see the history and physical dated October 30, 2016. In brief, the patie emerald is an 86-year-old female with a history of hypertension, hyperlipidemia, coronary artery disease and atrial fibrillation, who presented to the emergency department with ataxia that resulted in a me chanical fall. She did not strike her head or lose consciousness. She was admitted to the hospital for further evaluation. HOSPITAL COURSE: The patient was admitted to the progressive care unit. 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 There was no evidence of masses or acute ischemia. Head an d neck MRA was normal. There was no evidence of stroke. Neurology consult was obtained. It is tho ught her ataxia symptoms were secondary to end-organ damage from hypertensive urgency, as she presen da with a blood pressure of 218/100. Her blood pressure was slowly lowered. She was continued on her carvedilol, and her lisinopril dose was doubled from 10 mg daily to 20 mg daily. On the day of discharge, her blood pressures improved to the 150s over 80s, and her symptoms have completely resol allen. She was evaluated by Physical therapy and ambulated independently. She has also been ambulati ng in the halls independently prior to discharge. She has had no headache, chest pain, shortness of breath, and wishes to go home. DISPOSITION: Patient is discharged home in stable condition. FOLLOWUP: Dr. Nehal Rodriguez, primary care. DISCHARGE MEDICATIONS: Please see [facility] [employer] [facility] for complete updated outpatient medication list. New medications on discharge include baby aspirin 81 mg p.o. daily given her MRI findings and Neurol ogy recommendation. Changed medications: Her lisinopril dose is increased from 10 mg daily to 20 mg daily. She will co ntinue all other medications as previously prescribed, including her carvedilol and simvastatin. /[id number]/MODL
== END 2016-10-31 18:44 | disposition home or self-care (01) ==
LOC: F2W 19:50
PROVIDERS: ADMIT Internal Medicine; ATTEND Hospitalist
DX: I16.0 Hypertensive urgency (principal); I67.4 Hypertensive encephalopathy; R27.0 Ataxia, unspecified; I12.9 Hypertensive chronic kidney disease with stage 1 through stage 4 chronic kidney disease, or unspecified chronic kidney disease; N18.3 Chronic kidney disease, stage 3 (moderate); I25.10 Atherosclerotic heart disease of native coronary artery without angina pectoris; I48.0 Paroxysmal atrial fibrillation; E78.5 Hyperlipidemia, unspecified; Z85.3 Personal history of malignant neoplasm of breast
CPT/HCPCS: 70450; 70544; 70548; 70553; 71010; 93005; 96374; 96375; 97161; 97165; 99285; A9585; G0378; G8978; G8979; G8980; G8987; G8988; G8989; J2060; J3490

== ENCOUNTER → 2016-12-07 | Outpatient (CLI) | payer OTHER, MEDICARE | LOC: FIMAGING 09:34 | PROVIDERS: ATTEND Internal Medicine | DX: N28.9 Disorder of kidney and ureter, unspecified (principal); R11.0 Nausea; I48.91 Unspecified atrial fibrillation; I10 Essential (primary) hypertension; E78.5 Hyperlipidemia, unspecified ==

== ENCOUNTER 2017-01-20 10:09 | Emergency (ER) | payer OTHER, MEDICARE ==
[2017-01-20 10:17] VITALS: TEMP 97.5
--- NOTE | 2017-01-20 10:34 | EDPHY ---
H & P Time Seen by Provider: 01/20/17 10:17 HPI/ROS: CHIEF COMPLAINT: Lightheaded, dizzy, nausea HISTORY OF PRESENT ILLNESS: The patient is an 86-year-old female with a history of hypertensive encephalopathy, hypertension, coronary artery disease and AFib who presents to the emergency department with dizziness, lightheadedness and nausea. Her symptoms started last night. She got up to go the bathroom and felt off balance. She did not fall. She denies headache or neck pain. No focal weakness or numbness. Her dizziness is worse when she moves her head. It is similar to her previous episode when she was admitted in October. She has no chest pain or shortness of breath. She has been taking her medications as directed REVIEW OF SYSTEMS: My complete review of systems is negative except as mentioned in the HPI. Past Medical/Surgical History: Ataxia, hypertensive encephalopathy, hypertension, chronic kidney disease, coronary artery disease, history of AFib Social history: Patient is here with her Smoking Status: Never smoked Physical Exam: Vitals noted. 36.4, 177/96, 72, 18, 95% on room air. Repeat blood pressure is 172/91. GENERAL: Well-appearing, in no acute distress, alert. HEENT: Eyes normal to inspection, normal pharynx, no signs of dehydration. NECK: No thyromegaly, no lymphadenopathy, supple. RESPIRATORY: Clear to auscultation bilaterally, no rales, rhonchi or wheezing. CVS: Regular rate and rhythm, no rubs, murmurs, or gallops. ABDOMEN: Soft, nontender, nondistended, no organomegaly. BACK: Normal to inspection, no CVA tenderness. SKIN: Normal color, no rash, warm, dry. No pallor. EXTREMITIES: No pedal edema, no calf tenderness, no Homans sign or cords, no joint swelling. NEURO/PSYCH: Higher functions: Alert and Oriented x3. Normal speech and cognition. Normal mood and affect. Cranial nerves: Normal as tested. Cerebellar: Normal as tested. Good finger to nose, good [id number], normal gait. Peripheral exam: Normal motor exam. Normal sensation. Normal reflexes. Constitutional: Initial Vital Signs Temperature (C) 36.4 C 01/20/17 10:14 Heart Rate 72 01/20/17 10:14 Respiratory Rate 18 01/20/17 10:14 Blood Pressure 177/96 H 01/20/17 10:14 O2 Sat (%) 95 01/20/17 10:14 O2 Delivery Mode Room Air Allergies/Adverse Reactions: codeine [Codeine] Allergy (Unknown, Verified 01/20/17 10:11) morphine [Morphine] Allergy (Unknown, Verified 01/20/17 10:11) Penicillins Allergy (Unknown, Verified 01/20/17 10:11) hydrocodone bitartrate [From Vicodin] Allergy (Verified 01/20/17 10:11) Home Medications: Medication Instructions Recorded Carvedilol [Coreg (*)] 6.25 mg PO BIDMEAL 11/26/12 Simvastatin [Zocor 40 mg] 40 mg PO DAILY18 11/26/12 Multivitamins [Multivitamin (*)] 1 each PO DAILY 03/20/15 Acetaminophen [Tylenol ES 500 mg 500 mg PO Q6 PRN 10/30/16 (*)] Trimethoprim [TRIMPEX 100MG (*)] 100 mg PO DAILY 10/30/16 Aspirin [Aspirin EC] 81 mg PO DAILY #90 tablet. 10/31/16 Lisinopril [Zestril 20 mg (*)] 20 mg PO DAILY #30 tab 10/31/16 CeleBREX 01/20/17 Omeprazole 01/20/17 Medical Decision Making - Diagnostics Imaging Results: Imaging Impressions Chest X-Ray 01/20/17 10:36 Impression: 1. Stable borderline cardiomegaly. No active cardiopulmonary disease seen. Head CT 01/20/17 10:36 Impression: 1. Stable moderate atrophy. 2. No hemorrhage, mass effect, or definite acute peripheral infarct. 3. Stable moderate to marked nonspecific hypodensities in the white matter of bilateral cerebral hemispheres. Differential diagnosis includes microvascular ischemic disease, post-infectious/post-inflammatory sequela, atypical demyelinating disease, or migraine-related sequela. Small white matter lacunar infarcts may also have this appearance. If symptoms worsen, additional imaging may be necessary. Findings discussed with Elizabeth Grimaldo M.D. at 12:00 hour, 01/20/2017. ED Course/Re-evaluation: In the emergency department I discussed possible etiologies patient and her . I answered all her questions. An IV was placed. Laboratory studies were obtained. Patient was given labetalol 10 mg IV for her high blood pressure. She is given meclizine 25 mg p.o. I reviewed the patient's laboratory studies. CBC was unremarkable. Chemistry panel was normal. Troponin was negative. 1135: I rechecked the patient. Medications did not help her symptoms. She is still feeling dizzy. 160/86, 63. 11:40: EKG: Sinus rhythm at 64. Left axis deviation. No ST or T-wave abnormality. I rechecked the patient on numerous occasions. She stated her dizziness improved. She had no focal neurologic deficits. Head CT: Please refer the dictated report. No new acute disease. Please refer to the dictated report by Dr. Davis. I discussed the results with the patient. I answered all her questions. The patient felt comfortable with discharge home. She was given warnings prior to leaving. She will return with worsening symptoms. Differential Diagnosis: My differential includes not limited to ischemic CVA, hemorrhagic CVA, hypertensive emergency, hypertensive urgency, hypertension, dysrhythmia, ACS, acute [place], electrolyte abnormality, sugar abnormality, dehydration - Data Points Laboratory Results: Laboratory Results 01/20/17 10:40 01/20/17 10:40 01/20/17 01/20/17 01/20/17 10:40 10:40 10:40 WBC 5.12 10^3/uL 10^3/uL (3.80-9.50) RBC 4.45 10^6/uL 10^6/uL (4.18-5.33) Hgb 15.5 g/dL g/dL (12.6-16.3) Hct 46.5 % % (38.0-47.0) MCV 104.5 fL H fL (81.5-99.8) MCH 34.8 pg H pg (27.9-34.1) MCHC 33.3 g/dL g/dL (32.4-36.7) RDW 12.5 % % (11.5-15.2) Plt Count 130 10^3/uL L 10^3/uL (150-400) MPV 10.8 fL fL (8.7-11.7) Neut % (Auto) 65.2 % % (39.3-74.2) Lymph % (Auto) 20.9 % % (15.0-45.0) [place] % (Auto) 9.2 % % (4.5-13.0) Eos % (Auto) 3.7 % % (0.6-7.6) Baso % (Auto) 0.6 % % (0.3-1.7) Nucleat RBC Rel Count 0.0 % % (0.0-0.2) Absolute Neuts (auto) 3.34 10^3/uL 10^3/uL (1.70-6.50) Absolute Lymphs (auto) 1.07 10^3/uL 10^3/uL (1.00-3.00) Absolute Monos (auto) 0.47 10^3/uL 10^3/uL (0.30-0.80) Absolute Eos (auto) 0.19 10^3/uL 10^3/uL (0.03-0.40) Absolute Basos (auto) 0.03 10^3/uL 10^3/uL (0.02-0.10) Absolute Nucleated RBC 0.00 10^3/uL 10^3/uL (0-0.01) Immature Gran % 0.4 % % (0.0-1.1) Immature Gran # 0.02 10^3/uL 10^3/uL (0.00-0.10) PT 12.8 SEC SEC (12.0-15.0) INR 0.97 (0.83-1.16) APTT 27.3 SEC SEC (23.0-38.0) Sodium 138 mEq/L mEq/L (134-144) Potassium 4.4 mEq/L mEq/L (3.5-5.2) Chloride 100 mEq/L mEq/L (97-110) Carbon Dioxide 26 mEq/l mEq/l (22-31) Anion Gap 12 mEq/L mEq/L (8-16) BUN 19 mg/dL mg/dL (7-23) Creatinine 1.0 mg/dL mg/dL (0.6-1.0) Estimated GFR 53 Glucose 81 mg/dL mg/dL (70-100) Calcium 9.6 mg/dL mg/dL (8.5-10.4) Troponin I < 0.012 ng/mL ng/mL (0.000-0.034) Medications Given: Discontinued Medications Sodium Chloride (Ns) 500 mls @ 500 mls/hr IV EDNOW ONE PRN Reason: Protocol Stop: 01/20/17 11:34 Last Admin: 01/20/17 11:00 Dose: 500 mls Labetalol HCl (Trandate Injection) 10 mg IVP EDNOW ONE Stop: 01/20/17 10:36 Last Admin: 01/20/17 11:09 Dose: 10 mg Departure - Departure Disposition: Home, Routine, Self-Care Clinical Impression: Ataxia, Vertigo Hypertension Qualifiers: Hypertension type: unspecified Qualified Code(s): I10 - Essential (primary) hypertension Condition: Good Instructions: Dizziness (ED), Hypertension (ED) Additional Instructions: Return with increasing dizziness, headache, weakness, numbness or any other concerns. Referrals: Nehal Rodriguez MD [Primary Care Provider] - 2-3 days without fail
[2017-01-20] MEDS ORDERED: LABETALOL HCL 5 MG/ML 20 ML MDV IVP ONE (10:35)
[2017-01-20] MEDS ORDERED: NS 500 ML IV ONE (10:35)
[2017-01-20 10:49] LABS: % IMMATURE GRANULYOCYTES 0.4 % (0.0-1.1); ABSOLUTE IMMATURE GRANULOCYTES 0.02 10^3/uL (0.00-0.10); ADD DIFF? NO; ADD MORPH? NO; ADD SCAN? NO; ATYPICAL LYMPHOCYTE FLAG 0 (0-99); FRAGMENT RBC FLAG 0 (0-99); HEMATOCRIT 46.5 % (38.0-47.0); HEMOGLOBIN 15.5 g/dL (12.6-16.3); LEFT SHIFT FLG 0 (0-99); LIPEMIA HEMOLYSIS FLAG 80 (0-99); MEAN CELL HEMOGLOBIN 34.8 pg (27.9-34.1); MEAN CELL HEMOGLOBIN CONCENTR. 33.3 g/dL (32.4-36.7); MEAN CELL VOLUME 104.5 fL (81.5-99.8); MEAN PLATELET VOLUME 10.8 fL (8.7-11.7); PLATELET CLUMPS FLAG 10 (0-99); PLATELET COUNT 130 10^3/uL (150-400); RED BLOOD CELL COUNT 4.45 10^6/uL (4.18-5.33); RED CELL DISTRIBUTION WIDTH 12.5 % (11.5-15.2)
[2017-01-20 10:57] LABS: INR 0.97 (0.83-1.16); PROTIME(PATIENT) 12.8 SEC (12.0-15.0)
[2017-01-20 10:58] LABS: APTT 27.3 SEC (23.0-38.0)
[2017-01-20 11:10] LABS: ANION GAP 12 mEq/L (8-16); CALCIUM 9.6 mg/dL (8.5-10.4); CARBON DIOXIDE 26 mEq/l (22-31); CHLORIDE 100 mEq/L (97-110); GLOMERULAR FILTRATION RATE 53; GLUCOSE 81 mg/dL (70-100); POTASSIUM 4.4 mEq/L (3.5-5.2); SODIUM 138 mEq/L (134-144)
[2017-01-20 11:22] LABS: TROPONIN I < 0.012 ng/mL (0.000-0.034)
--- NOTE | 2017-01-20 11:42 | CPEKG ---
Heart Rate: 64 RR Interval: 938 P-R Interval: 216 QRSD Interval: 82 QT Interval: 412 QTC Interval: 425 P [place]: 60 QRS [place]: -19 T Wave [place]: 24 EKG Severity - BORDERLINE ECG - EKG Impression: SINUS RHYTHM EKG Impression: PROBABLE LEFT ATRIAL ABNORMALITY EKG Impression: BORDERLINE LEFT AXIS DEVIATION Electronically Signed By: Elizabeth Grimaldo 20-Jan-2017 14:26:42
[2017-01-20 13:23] VITALS: BP 148/77; PULSE 69; RESP 18; O2SAT 97
== END 2017-01-20 13:24 | disposition home or self-care (01) ==
DX: R42 Dizziness and giddiness (principal); I12.9 Hypertensive chronic kidney disease with stage 1 through stage 4 chronic kidney disease, or unspecified chronic kidney disease; N18.9 Chronic kidney disease, unspecified; E86.9 Volume depletion, unspecified; Z79.82 Long term (current) use of aspirin
CPT/HCPCS: 70450; 71010; 93005; 96361; 96374; 99285; J3490

== ENCOUNTER → 2017-02-08 | Outpatient (CLI) | payer OTHER, MEDICARE | LOC: FIMAGING 07:53 | PROVIDERS: ATTEND Internal Medicine Cardiovascular Disease | DX: I65.22 Occlusion and stenosis of left carotid artery (principal); I48.91 Unspecified atrial fibrillation; I10 Essential (primary) hypertension ==

== ENCOUNTER → 2017-03-01 | Outpatient (CLI) | payer OTHER, MEDICARE | LOC: BHFA 09:30 | PROVIDERS: ATTEND Internal Medicine Cardiovascular Disease | DX: I48.91 Unspecified atrial fibrillation (principal); I10 Essential (primary) hypertension | CPT/HCPCS: 78452; 93017; A9500 ==

== ENCOUNTER 2017-03-28 00:02 | Emergency (ER) | payer OTHER, MEDICARE ==
[2017-03-28] MEDS ORDERED: NS 1,000 ML IV ONE (00:04)
[2017-03-28] MEDS ORDERED: MECLIZINE HCL 25 MG TAB PO ONE (00:04)
--- NOTE | 2017-03-28 00:19 | CPEKG ---
Heart Rate: 68 RR Interval: 882 P-R Interval: 204 QRSD Interval: 82 QT Interval: 408 QTC Interval: 434 P [place]: 62 QRS [place]: 10 T Wave [place]: 45 EKG Severity - BORDERLINE ECG - EKG Impression: SINUS RHYTHM EKG Impression: PROBABLE LEFT ATRIAL ABNORMALITY Electronically Signed By: Dahlia Campa 28-Mar-2017 06:42:08
--- NOTE | 2017-03-28 00:44 | EDPHY ---
H & P Stated Complaint: dizziness/nausea all day, worse this pm, no pain/sob HPI/ROS: HPI The patient presents brought in by ambulance for dizziness which has been present for the last 1 day. She awoke with symptoms of dizziness which she describes as the room spinning. Her symptoms have been getting progressively worse over the course of the day. She has been taking her usual medications, but does not have any medications for vertigo at home. She has not had a headache. She does feel nauseated without vomiting. She does not have any ringing in her ears or changes in her hearing. This feels similar to prior episodes. She has multiple ER visits for same. MRI was performed for similar episode in October of this year demonstrating severe white matter gliosis, unchanged from prior MRI. REVIEW OF SYSTEMS Constitutional: No fever, no chills. Eyes: No discharge. ENT: No sore throat. Cardiovascular: No chest pain, no palpitations. Respiratory: No cough, no shortness of breath. Gastrointestinal: No abdominal pain, no vomiting. Genitourinary: No hematuria. Musculoskeletal: No back pain. Skin: No rashes. Neurological: No headache. PMHx: Hypertensive encephalopathy, hypertension, recurrent vertigo, CAD, atrial fibrillation Soc Hx: Lives at home with her PHYSICAL General Appearance: Alert, no distress Eyes: Pupils equal and round no pallor or injection ENT, Mouth: Mucous membranes moist Respiratory: There are no retractions, lungs are clear to auscultation Cardiovascular: Regular rate and rhythm Gastrointestinal: Abdomen is soft and non-tender, no masses, bowel sounds normal Neurological: Alert and oriented x3, cranial nerves 2-12 intact, 5/5 strength of her upper and lower extremities, no nystagmus, normal finger to nose testing Skin: Warm and dry, no rashes Musculoskeletal: Neck is supple non tender Extremities: symmetrical, full range of motion Psychiatric: Patient is oriented X 3, there is no agitation Source: Patient, EMS, Old records - Personal History Tetanus Vaccine Date: 2012 - Medical/Surgical History Hx Asthma: No Hx Chronic Respiratory Disease: No Hx Diabetes: No Hx Cardiac Disease: Yes Hx Renal Disease: No Hx Cirrhosis: No Hx Alcoholism: No Hx HIV/AIDS: No Hx Splenectomy or Spleen Trauma: No Other PMH: HTN, Hyperlipidemia, gerd, vertigo, arthritis, Right breast cancer, 2 bladder surgeries, 2 back surgeries, hysterectomy - Social History Smoking Status: Never smoked Constitutional: Initial Vital Signs Temperature (C) 36.6 C 03/28/17 00:07 Heart Rate 73 03/28/17 00:07 Respiratory Rate 18 03/28/17 00:07 Blood Pressure 185/102 H 03/28/17 00:07 O2 Sat (%) 96 03/28/17 00:07 O2 Delivery Mode Room Air O2 (L/minute) 2 Allergies/Adverse Reactions: codeine [Codeine] Allergy (Unknown, Verified 03/28/17 00:13) morphine [Morphine] Allergy (Unknown, Verified 03/28/17 00:13) Penicillins Allergy (Unknown, Verified 03/28/17 00:13) hydrocodone bitartrate [From Vicodin] Allergy (Verified 03/28/17 00:13) Home Medications: Medication Instructions Recorded Carvedilol [Coreg (*)] 6.25 mg PO BIDMEAL 11/26/12 Simvastatin [Zocor 40 mg] 40 mg PO DAILY18 11/26/12 Multivitamins [Multivitamin (*)] 1 each PO DAILY 03/20/15 Acetaminophen [Tylenol ES 500 mg 500 mg PO Q6 PRN 10/30/16 (*)] Trimethoprim [TRIMPEX 100MG (*)] 100 mg PO DAILY 10/30/16 Aspirin [Aspirin EC] 81 mg PO DAILY #90 tablet. 10/31/16 Lisinopril [Zestril 20 mg (*)] 20 mg PO DAILY #30 tab 10/31/16 CeleBREX 01/20/17 Omeprazole 01/20/17 Meclizine HCl [Meclizine HCl 25 mg 25 mg PO BID PRN #20 tab 03/28/17 (RX,OTC)] Medical Decision Making - Diagnostics EKG Interpretation: EKG: Complete interpretation has been separately recorded in the [email or web address] archive. Summary impression: Normal sinus rhythm Differential Diagnosis: This is an 87-year-old female with past medical history of hypertension, intermittent vertigo, CAD who presents brought in by ambulance for dizziness throughout the day today that feels like her prior episodes. Differential diagnosis includes a BPPV, labyrinthitis, less likely CVA given no cerebellar findings on exam. In the emergency department, patient was given 1 L normal saline for her dizziness as well as meclizine. She had improvement in her symptoms and asked to go home. She was able to ambulate with a steady gait independently. She did feel somewhat dizzy, however would like to go home. I have given her a handout on the Joyce maneuver per her request. I will also refer her to ENT given her frequent visits for vertigo. I doubt any CVA or tumor at this time. She will be discharged with her . - Data Points Laboratory Results: Laboratory Results 03/28/17 00:15 03/28/17 00:15 03/28/17 03/28/17 03/28/17 00:15 00:15 00:15 WBC 6.27 10^3/uL 10^3/uL (3.80-9.50) RBC 4.36 10^6/uL 10^6/uL (4.18-5.33) Hgb 15.1 g/dL g/dL (12.6-16.3) Hct 44.7 % % (38.0-47.0) MCV 102.5 fL H fL (81.5-99.8) MCH 34.6 pg H pg (27.9-34.1) MCHC 33.8 g/dL g/dL (32.4-36.7) RDW 12.5 % % (11.5-15.2) Plt Count 133 10^3/uL L 10^3/uL (150-400) MPV 11.0 fL fL (8.7-11.7) Neut % (Auto) 53.9 % % (39.3-74.2) Lymph % (Auto) 30.5 % % (15.0-45.0) [place] % (Auto) 8.1 % % (4.5-13.0) Eos % (Auto) 5.7 % % (0.6-7.6) Baso % (Auto) 0.8 % % (0.3-1.7) Nucleat RBC Rel Count 0.0 % % (0.0-0.2) Absolute Neuts (auto) 3.38 10^3/uL 10^3/uL (1.70-6.50) Absolute Lymphs (auto) 1.91 10^3/uL 10^3/uL (1.00-3.00) Absolute Monos (auto) 0.51 10^3/uL 10^3/uL (0.30-0.80) Absolute Eos (auto) 0.36 10^3/uL 10^3/uL (0.03-0.40) Absolute Basos (auto) 0.05 10^3/uL 10^3/uL (0.02-0.10) Absolute Nucleated RBC 0.00 10^3/uL 10^3/uL (0-0.01) Immature Gran % 1.0 % % (0.0-1.1) Immature Gran # 0.06 10^3/uL 10^3/uL (0.00-0.10) Sodium 142 mEq/L mEq/L (134-144) Potassium 4.4 mEq/L mEq/L (3.5-5.2) Chloride 105 mEq/L mEq/L (97-110) Carbon Dioxide 23 mEq/l mEq/l (22-31) Anion Gap 14 mEq/L mEq/L (8-16) BUN 18 mg/dL mg/dL (7-23) Creatinine 1.0 mg/dL mg/dL (0.6-1.0) Estimated GFR 52 Glucose 119 mg/dL H mg/dL (70-100) Calcium 10.0 mg/dL mg/dL (8.5-10.4) Total Bilirubin 0.4 mg/dL mg/dL (0.1-1.4) AST 26 IU/L IU/L (14-46) ALT 33 IU/L IU/L (9-52) Alkaline Phosphatase 60 IU/L IU/L (38-126) Troponin I < 0.012 ng/mL ng/mL (0.000-0.034) Total Protein 6.8 g/dL g/dL (6.3-8.2) Albumin 4.5 g/dL g/dL (3.5-5.0) Medications Given: Discontinued Medications Sodium Chloride (Ns) 1,000 mls @ 0 mls/hr IV EDNOW ONE; Wide Open PRN Reason: Protocol Stop: 03/28/17 00:05 Last Admin: 03/28/17 00:18 Dose: 1,000 mls Meclizine HCl (Meclizine Hcl) 25 mg PO EDNOW ONE Stop: 03/28/17 00:05 Last Admin: 03/28/17 00:18 Dose: 25 mg Departure - Departure Disposition: Home, Routine, Self-Care Clinical Impression: Vertigo Condition: Good Instructions: Vertigo (ED) Additional Instructions: Please make sure to drink plenty of fluids. You should return to the emergency department if your worse in any way. Otherwise, you can follow up with the [facility] if you would like. Referrals: Nehal Rodriguez MD [Primary Care Provider] - As per Instructions Prescriptions: Meclizine HCl [Meclizine HCl 25 mg (RX,OTC)] 25 mg PO BID PRN #20 tab PRN Reason: Dizziness
[2017-03-28 00:53] LABS: ABSOLUTE IMMATURE GRANULOCYTES 0.06 10^3/uL (0.00-0.10); ADD DIFF? NO; ADD MORPH? NO; ADD SCAN? NO; ATYPICAL LYMPHOCYTE FLAG 10 (0-99); FRAGMENT RBC FLAG 0 (0-99); HEMATOCRIT 44.7 % (38.0-47.0); HEMOGLOBIN 15.1 g/dL (12.6-16.3); LEFT SHIFT FLG 0 (0-99); LIPEMIA HEMOLYSIS FLAG 90 (0-99); MEAN CELL HEMOGLOBIN 34.6 pg (27.9-34.1); MEAN CELL HEMOGLOBIN CONCENTR. 33.8 g/dL (32.4-36.7); MEAN CELL VOLUME 102.5 fL (81.5-99.8); PLATELET CLUMPS FLAG 0 (0-99); PLATELET COUNT 133 10^3/uL (150-400); RED BLOOD CELL COUNT 4.36 10^6/uL (4.18-5.33); RED CELL DISTRIBUTION WIDTH 12.5 % (11.5-15.2)
[2017-03-28 00:58] LABS: ALANINE AMINOTRANSFERASE 33 IU/L (9-52); ALBUMIN 4.5 g/dL (3.5-5.0); ALKALINE PHOSPHATASE 60 IU/L (38-126); ANION GAP 14 mEq/L (8-16); ASPARTATE AMINOTRANSFERASE 26 IU/L (14-46); BILIRUBIN,TOTAL 0.4 mg/dL (0.1-1.4); CARBON DIOXIDE 23 mEq/l (22-31); CHLORIDE 105 mEq/L (97-110); GLOMERULAR FILTRATION RATE 52; GLUCOSE 119 mg/dL (70-100); POTASSIUM 4.4 mEq/L (3.5-5.2); SODIUM 142 mEq/L (134-144); TOTAL PROTEIN 6.8 g/dL (6.3-8.2)
[2017-03-28 02:16] VITALS: BP 146/77; PULSE 72; RESP 16; TEMP 97.7; O2SAT 94
== END 2017-03-28 02:36 | disposition home or self-care (01) ==
LOC: EDUNIT#
PROC: 3E0337Z Introduction of Electrolytic and Water Balance Substance into Peripheral Vein, Percutaneous Approach (ICD-10-PCS; principal; 2017-03-28)
DX: R42 Dizziness and giddiness (principal); E86.9 Volume depletion, unspecified; I10 Essential (primary) hypertension; I25.10 Atherosclerotic heart disease of native coronary artery without angina pectoris; Z79.82 Long term (current) use of aspirin; Z85.3 Personal history of malignant neoplasm of breast

== ENCOUNTER 2017-04-28 20:36 | Observation (INO) | payer OTHER, MEDICARE ==
--- NOTE | 2017-04-28 20:44 | EDPHY ---
H & P HPI/ROS: CHIEF COMPLAINT: Nausea HISTORY OF PRESENT ILLNESS: This is an 87-year-old female with a history of hypertension, coronary artery disease, atrial fibrillation, and what was thought to be recurrent vertigo. She presents by ambulance after experiencing an episode of sudden diarrhea. She was in the kitchen, felt weak, sat down, and had a bout of explosive diarrhea. Her has been lowered her to the floor and called 911. She has been feeling nauseous all day but has not vomited. She states that she did not faint. She has not had chest pain, difficulty breathing, or abdominal pain. She has not had recent fever. She describes her dizziness as a lightheadedness. She does not have a spinning sensation. She was seen with similar complaints in March of 2017 and following that emergency department visit she was evaluated by [facility]. At that office visit she was told that she likely did not have vertigo. REVIEW OF SYSTEMS: A ten point review of systems was performed and is negative with the exception of the items mentioned in the HPI. Past medical history: 1. Coronary artery disease 2. Atrial fibrillation 3. Hypertension 4. Lightheadedness 5. GERD Social history: She and her live independently in their own home. She does not use tobacco products. She rarely drinks alcohol and only in small quantities. General Appearance: Alert. Vital signs reviewed. Blood pressure at triage was 160/102 with subsequent blood pressure of 150/82. Head: Normocephalic atraumatic. Eyes: Pupils equal and round, no conjunctival injection, no discharge. Anicteric. ENT, Mouth: Mucous membranes are moist, no oropharyngeal erythema or edema. Neck: No lymphadenopathy, supple. Respiratory: Lungs are clear to auscultation; no wheezes, rales, or rhonchi. Cardiovascular: Regular rate and rhythm; no murmur, rub, or gallop. Gastrointestinal: Abdomen is soft and nontender, no masses or organomegaly, bowel sounds normal. Skin: Warm and dry, no rashes on exposed skin, normal color. Back: Nontender to palpation over the thoracolumbar spine. No CVAT. Extremities: No lower extremity edema, no calf tenderness or swelling. Neurological: Alert and oriented. Moving all four extremities easily and equally. EOMI. Tongue midline. Facial expressions symmetric. Psychiatric: Normal affect. - Personal History Tetanus Vaccine Date: 2012 - Medical/Surgical History Hx Asthma: No Hx Chronic Respiratory Disease: No Hx Diabetes: No Hx Cardiac Disease: Yes Hx Renal Disease: No Hx Cirrhosis: No Hx Alcoholism: No Hx HIV/AIDS: No Hx Splenectomy or Spleen Trauma: No Other PMH: HTN, Hyperlipidemia, gerd, vertigo, arthritis, Right breast cancer, 2 bladder surgeries, 2 back surgeries, hysterectomy - Social History Smoking Status: Never smoked Constitutional: Initial Vital Signs Temperature (C) 36.7 C 04/28/17 20:42 Heart Rate 67 04/28/17 20:42 Respiratory Rate 14 04/28/17 20:42 Blood Pressure 160/102 H 04/28/17 20:42 O2 Sat (%) 95 04/28/17 20:42 O2 Delivery Mode Room Air Allergies/Adverse Reactions: codeine [Codeine] Allergy (Unknown, Verified 04/28/17 20:45) morphine [Morphine] Allergy (Unknown, Verified 04/28/17 20:45) Penicillins Allergy (Unknown, Verified 04/28/17 20:45) hydrocodone bitartrate [From Vicodin] Allergy (Verified 04/28/17 20:45) Home Medications: Medication Instructions Recorded Carvedilol [Coreg (*)] 6.25 mg PO BIDMEAL 11/26/12 Simvastatin [Zocor 40 mg] 40 mg PO DAILY18 11/26/12 Multivitamins [Multivitamin (*)] 1 each PO DAILY 03/20/15 Acetaminophen [Tylenol ES 500 mg 500 mg PO Q6 PRN 10/30/16 (*)] Trimethoprim [TRIMPEX 100MG (*)] 100 mg PO DAILY 10/30/16 Aspirin [Aspirin EC] 81 mg PO DAILY #90 tablet. 10/31/16 Lisinopril [Zestril 20 mg (*)] 20 mg PO DAILY #30 tab 10/31/16 CeleBREX 01/20/17 Omeprazole 01/20/17 Meclizine HCl [Meclizine HCl 25 mg 25 mg PO BID PRN #20 tab 03/28/17 (RX,OTC)] Medical Decision Making - Diagnostics EKG Interpretation: 12 lead EKG is interpreted in [facility] by emergency department physician. Imaging Results: Imaging Impressions Chest X-Ray 04/28/17 21:13 Impression: 1. Bronchitis/airways disease. 2. Atherosclerotic aorta. 3. Bilateral lower lobe patchy scarring again identified. 4. No definite pneumonia, pleural effusion or pneumothorax. ED Course/Re-evaluation: 87-year-old female with nausea and lightheadedness that she has been experiencing throughout the day. She had an episode of sudden diarrhea. She has not vomited. She has not had another bout of diarrhea. She continues to feel lightheaded and slightly off balance. Her tells me that this is intermittent. He called 911 tonight and is concerned that he cannot adequately care for her when she is lightheaded and needs assistance walking. Evaluation in the emergency room includes CBC, chemistries, troponin, chest x- ray. Blood work is essentially normal except for her creatinine which is 1.1. She has had elevated creatinine in the past. Chest x-ray does not show evidence of an infiltrate/pneumonia. She has bilateral patchy scarring that has been seen before. She has an atherosclerotic aorta and evidence of airways disease. She was able to ambulate in the emergency department with the assist of 1 person. This does not seem to be vertigo. I do not suspect an acute stroke or TIA. It is not clear why she had diarrhea, I have not found any other evidence of an infectious process, but the nausea and diarrhea are suggestive of a gastritis enteritis. She will be observed overnight to see how this develops. It may be that she needs additional help at home or an alternative living situation. Differential Diagnosis: Dizziness including but not limited to peripheral and central causes of vertigo , orthostatic causes including dehydration, and blood loss. - Data Points Laboratory Results: Laboratory Results 04/28/17 21:18 04/28/17 21:18 04/28/17 04/28/17 21:18 21:18 WBC 5.59 10^3/uL 10^3/uL (3.80-9.50) RBC 4.49 10^6/uL 10^6/uL (4.18-5.33) Hgb 15.9 g/dL g/dL (12.6-16.3) Hct 46.1 % % (38.0-47.0) MCV 102.7 fL H fL (81.5-99.8) MCH 35.4 pg H pg (27.9-34.1) MCHC 34.5 g/dL g/dL (32.4-36.7) RDW 12.3 % % (11.5-15.2) Plt Count 132 10^3/uL L 10^3/uL (150-400) MPV 10.4 fL fL (8.7-11.7) Neut % (Auto) 57.1 % % (39.3-74.2) Lymph % (Auto) 26.3 % % (15.0-45.0) [place] % (Auto) 10.0 % % (4.5-13.0) Eos % (Auto) 5.9 % % (0.6-7.6) Baso % (Auto) 0.5 % % (0.3-1.7) Nucleat RBC Rel Count 0.0 % % (0.0-0.2) Absolute Neuts (auto) 3.19 10^3/uL 10^3/uL (1.70-6.50) Absolute Lymphs (auto) 1.47 10^3/uL 10^3/uL (1.00-3.00) Absolute Monos (auto) 0.56 10^3/uL 10^3/uL (0.30-0.80) Absolute Eos (auto) 0.33 10^3/uL 10^3/uL (0.03-0.40) Absolute Basos (auto) 0.03 10^3/uL 10^3/uL (0.02-0.10) Absolute Nucleated RBC 0.00 10^3/uL 10^3/uL (0-0.01) Immature Gran % 0.2 % % (0.0-1.1) Immature Gran # 0.01 10^3/uL 10^3/uL (0.00-0.10) Sodium 137 mEq/L mEq/L (134-144) Potassium 4.9 mEq/L mEq/L (3.5-5.2) Chloride 99 mEq/L mEq/L (97-110) Carbon Dioxide 25 mEq/l mEq/l (22-31) Anion Gap 13 mEq/L mEq/L (8-16) BUN 21 mg/dL mg/dL (7-23) Creatinine 1.1 mg/dL H mg/dL (0.6-1.0) Estimated GFR 47 Glucose 102 mg/dL H mg/dL (70-100) Calcium 10.1 mg/dL mg/dL (8.5-10.4) Troponin I < 0.012 ng/mL ng/mL (0.000-0.034) Medications Given: Discontinued Medications Sodium Chloride (Ns) 500 mls @ 0 mls/hr IV EDNOW ONE; Wide Open PRN Reason: Protocol Stop: 04/28/17 21:13 Last Admin: 04/28/17 21:48 Dose: 500 mls Ondansetron HCl (Zofran) 4 mg IVP EDNOW ONE Stop: 04/28/17 21:17 Last Admin: 04/28/17 21:20 Dose: 4 mg Promethazine HCl (Phenergan) 6.25 mg IVP ONCE ONE Stop: 04/28/17 22:13 Last Admin: 04/28/17 22:23 Dose: 6.25 mg Promethazine HCl (Phenergan) 6.25 mg IVP EDNOW ONE Stop: 04/28/17 22:13 Last Admin: 04/28/17 22:23 Dose: Not Given Departure - Departure Disposition: [facility] Clinical Impression: Lightheadedness Diarrhea Qualifiers: Diarrhea type: unspecified type Qualified Code(s): R19.7 - Diarrhea, unspecified Condition: Good Referrals: Patient,NotPresent [Unknown] - As per Instructions
[2017-04-28] MEDS ORDERED: NS 500 ML IV ONE (21:12)
[2017-04-28] MEDS ORDERED: ONDANSETRON 4 MG/2 ML VIAL IVP ONE (21:16)
--- NOTE | 2017-04-28 21:20 | CPEKG ---
Heart Rate: 68 RR Interval: 882 P-R Interval: 216 QRSD Interval: 82 QT Interval: 400 QTC Interval: 426 P [place]: 62 QRS [place]: -17 T Wave [place]: 48 EKG Severity - BORDERLINE ECG - EKG Impression: SINUS RHYTHM EKG Impression: PROBABLE LEFT ATRIAL ABNORMALITY EKG Impression: BORDERLINE LEFT AXIS DEVIATION Electronically Signed By: Ngoc Denton 28-Apr-2017 23:32:33
[2017-04-28 21:22] LABS: PLATELET COUNT 132 10^3/uL (150-400)
[2017-04-28] MEDS ORDERED: PROMETHAZINE HCL 25 MG/ML INJ IVP ONE ×2 (22:12)
[2017-04-28] MEDS ORDERED: ONDANSETRON DISINTEGRATING 4 MG TAB PO PRN (22:24)
[2017-04-28] MEDS ORDERED: ACETAMINOPHEN 325 MG TAB PO PRN (22:24)
[2017-04-28] MEDS ORDERED: ONDANSETRON 4 MG/2 ML VIAL IVP PRN (22:24)
--- NOTE | 2017-04-28 23:16 | PDGENHP ---
History and Physical - Chief Complaint Lightheadedness - History of Present Illness 87 yo F w/ hx of HTN presents with lightheadedness and ataxia. Patient was in usual state of health until yesterday when she began to feel a little unsteady on her feet. She describes this more as lightheadedness than a room spinning sensation. Then, today, this worsened and her reports an episode of pre- syncope where she could not get up on her own. This was accompanied by a single episode of explosive diarrhea. Since this episode she has remained unsteady on her feet and nauseous. She denies recent illness, sick contacts, or medications changes. She also denies dysuria, chest pain, and shortness of breath. In the ED work-up thus far has been relatively unremarkable and patient is being admitted for observation. Of note, patient was admitted with similar findings in October of this year. During that admission her symptoms improved with treatment of high blood pressure. Her BP is reasonably well controlled while here with last reading showing 150/80. MRI and MRA during that admission revealed severe gliosis of the white matter but this was not significantly changed from 2016 studies. History Information - Allergies/Home Medication List Allergies/Adverse Reactions: codeine [Codeine] Allergy (Unknown, Verified 04/28/17 20:45) morphine [Morphine] Allergy (Unknown, Verified 04/28/17 20:45) Penicillins Allergy (Unknown, Verified 04/28/17 20:45) hydrocodone bitartrate [From Vicodin] Allergy (Verified 04/28/17 20:45) Home Medications: Carvedilol [Coreg (*)] 6.25 mg PO BIDMEAL 11/26/12 [Last Taken 10/30/16 1 TAB] Simvastatin [Zocor 40 mg] 40 mg PO DAILY18 11/26/12 [Last Taken 10/29/16] Multivitamins [Multivitamin (*)] 1 each PO DAILY 03/20/15 [Last Taken 10/30/16] Acetaminophen [Tylenol ES 500 mg (*)] 500 mg PO Q6 PRN 10/30/16 [Last Taken 03/08] Trimethoprim [TRIMPEX 100MG (*)] 100 mg PO DAILY 10/30/16 [Last Taken 10/30/16] CeleBREX 01/20/17 [Last Taken Unknown] Omeprazole 01/20/17 [Last Taken Unknown] I have personally reviewed and updated: family history, medical history - Past Medical History atrial fibrillation Additional medical history: Aortic insufficiency. Hypertension. Hyperlipidemia. Peptic ulcer disease. Osteoarthritis. Coronary artery disease. Vasovagal syncope in 2013. Breast cancer. Recurrent urinary tract infections - Surgical History Additional surgical history: bladder. Hysterectomy. Back surgery x2. Right breast lumpectomy. Rotator cuff - Family History Additional family history: colon cancer and breast cancer both her family - Social History Smoking Status: Never smoked Additional social history: patient is normally able to ambulate and transfer independently Review of Systems Review of Systems: ROS: 10pt was reviewed & negative except for what was stated in HPI & below Physical Exam Physical Exam: Temp Pulse Resp BP Pulse Ox 36.8 C 73 18 150/84 H 92 04/28/17 21:53 04/28/17 22:44 04/28/17 22:44 04/28/17 22:44 04/28/17 22:44 Constitutional: no apparent distress, not in pain Eyes: PERRL, EOMI Ears, Nose, Mouth, Throat: moist mucous membranes, no oral mucosal ulcers Cardiovascular: regular rate and rhythym, systolic murmur, No edema Respiratory: no respiratory distress, clear to auscultation Gastrointestinal: normoactive bowel sounds, soft, non-tender abdomen Genitourinary: no bladder fullness, no bladder tenderness Skin: warm, normal color Neurologic: AAOx3, sensation intact bilaterally, CN II-XII Intact, other ( Finger to nose intact bilaterally), No weakness, No numbness, No facial droop Psychiatric: interacting appropriately, not anxious Lab Data & Imaging Review 04/28/17 21:18 04/28/17 21:18 WBC 5.59 10^3/uL (3.80-9.50) 04/28/17 21:18 RBC 4.49 10^6/uL (4.18-5.33) 04/28/17 21:18 Hgb 15.9 g/dL (12.6-16.3) 04/28/17 21:18 Hct 46.1 % (38.0-47.0) 04/28/17 21:18 MCV 102.7 fL (81.5-99.8) H 04/28/17 21:18 MCH 35.4 pg (27.9-34.1) H 04/28/17 21:18 MCHC 34.5 g/dL (32.4-36.7) 04/28/17 21:18 RDW 12.3 % (11.5-15.2) 04/28/17 21:18 Plt Count 132 10^3/uL (150-400) L 04/28/17 21:18 MPV 10.4 fL (8.7-11.7) 04/28/17 21:18 Neut % (Auto) 57.1 % (39.3-74.2) 04/28/17 21:18 Lymph % (Auto) 26.3 % (15.0-45.0) 04/28/17 21:18 [place] % (Auto) 10.0 % (4.5-13.0) 04/28/17 21: Eos % (Auto) 5.9 % (0.6-7.6) 04/28/17:18 Baso % (Auto) 0.5 % (0.3-1.7) 04/28/17:18 Nucleat RBC Rel Count 0.0 % (0.0-0.2) 04/28/17 21:18 Absolute Neuts (auto) 3.19 10^3/uL (1.70-6.50) 04/28/17 21: Absolute Lymphs (auto) 1.47 10^3/uL (1.00-3.00) 04/28/17 21:18 Absolute Monos (auto) 0.56 10^3/uL (0.30-0.80) 04/28/17 21: Absolute Eos (auto) 0.33 10^3/uL (0.03-0.40) 04/28/17 21:18 Absolute Basos (auto) 0.03 10^3/uL (0.02-0.10) 04/28/17:18 Absolute Nucleated RBC 0.00 10^3/uL (0-0.01) 04/28/17 21:18 Immature Gran % 0.2 % (0.0-1.1) 04/28/17 21: Immature Gran # 0.01 10^3/uL (0.00-0.10) 04/28/17 21:18 Sodium 137 mEq/L (134-144) 04/28/17 21:18 Potassium 4.9 mEq/L (3.5-5.2) 04/28/17 21:18 Chloride 99 mEq/L (97-110) 04/28/17 21:18 Carbon Dioxide 25 mEq/l (22-31) 04/28/17 21:18 Anion Gap 13 mEq/L (8-16) 04/28/17 21:18 BUN 21 mg/dL (7-23) 04/28/17 21:18 Creatinine 1.1 mg/dL (0.6-1.0) H 04/28/17 21:18 Estimated GFR 47 04/28/17 21:18 Glucose 102 mg/dL (70-100) H 04/28/17 21:18 Calcium 10.1 mg/dL (8.5-10.4) 04/28/17 21:18 Total Bilirubin 0.8 mg/dL (0.1-1.4) 04/28/17 21:00 Conjugated Bilirubin 0.5 mg/dL (0.0-0.5) 04/28/17 21:00 Unconjugated Bilirubin 0.3 mg/dL (0.0-1.1) 04/28/17 21:00 AST 30 IU/L (14-46) 04/28/17 21:00 ALT 27 IU/L (9-52) 04/28/17 21:00 Alkaline Phosphatase 51 IU/L (38-126) 04/28/17 21:00 Troponin I < 0.012 ng/mL (0.000-0.034) 04/28/17 21:18 Total Protein 7.4 g/dL (6.3-8.2) 04/28/17 21:00 Albumin 4.6 g/dL (3.5-5.0) 04/28/17 21:00 Imaging Review: Imaging Impressions Chest X-Ray 04/28/17 21:13 Impression: 1. Bronchitis/airways disease. 2. Atherosclerotic aorta. 3. Bilateral lower lobe patchy scarring again identified. 4. No definite pneumonia, pleural effusion or pneumothorax. Visualized and Interpreted EKG results: Yes EKG Interpretation: Positive for: normal sinsus rhythm Assessment & Plan Assessment: 87 yo F w/ hx of HTN presents with 2 days of unsteady gait accompanied by diarrheal episode and pre-syncope. Plan: 1. Dizziness, unsteady gait - Presenting symptoms sound similar to October 2016 presentation. During that hospitalization MRI/MRA where stable from prior and symptoms improved with conservative management and BP control. Large volume diarrheal episode that occurred on day of admission may be a clue to infectious process contributing to presentation. Her neurologic exam is currently normal so I do not feel this represents a posterior circulation stroke, especially as she denies symptoms of vertigo. She also denies recent illness or medication changes. - If diarrhea recurs, will send for GI PCR - Will check UA and LFTs to complete basic infectious work-up - PT/OT evaluations, may need DELORES if gait does not improve - Would only pursue repeat brain imaging or neurology consultation of symptoms persist or neurologic deficits arise 2. HTN - Now under reasonable control with lisinopril and Coreg. Continue home meds; needs med reconciliation. 3. GERD - On PPI chronically. Diet - Regular Code - Full Ppx - LMWH, low dose Dispo - Admit to observation status
[2017-04-29 03:16] VITALS: RESP 18; O2SAT 91
[2017-04-29 04:48] LABS: PLATELET COUNT 120 10^3/uL (150-400)
[2017-04-29 08:15] VITALS: BP 119/80; PULSE 79; TEMP 97.8
[2017-04-29] MEDS ORDERED: ENOXAPARIN 30 MG/0.3 ML SYR SC SCH (09:00)
--- NOTE | 2017-04-29 10:27 | ASMTCMCOM ---
CM Note CM Note Notes: Patient admitted via ED last night. She has been medically cleared for dc to home per hospital medicine. No needs from CM identified. CM available if need arises, Date Signed: 04/29/2017 10:24 AM Electronically Signed By:Nimo Bradshaw RN
--- NOTE | 2017-04-29 14:17 | GDS ---
[f rep st] DISCHARGE SUMMARY DIAGNOSIS: 1. Disequilibrium and lightheadedness of unclear etiology. 2. Hypertension. 3. Gastroesophageal reflux disease. 4. Asymptomatic bacteria. CONSULTANTS: None. HOSPITAL COURSE: Lightheadedness: The patient presented to the hospital with lightheadedness. Thes e symptoms have since resolved throughout this hospital. She has remained normotensive. On day of d ischarge, she states she feels well and would like to be discharged home. She denies any urinary com plaints. PHYSICAL EXAM: VITAL SIGNS: On day of discharge, blood pressure 119/80 pulse of 79, respiratory rat e 18, O2 saturation 91% on room air, temperature afebrile. GENERAL: No acute distress. HEART: S1, S 2. LUNGS: Clear. ABDOMEN: Soft. EXTREMITIES: No edema. LABORATORY DATA: Done this hospital stay. UAs showed 10-15 RBCs, 3-5 WBCs and 2+ leukocyte esterase . \ DISCHARGE MEDICATIONS: Please refer to discharge medication reconciliation [facility] for details. DISCHARGE INSTRUCTIONS: The patient will be discharged home where she was instructed to follow up wi th her primary care provider. I recommended that she have outpatient Holter monitor to evaluate for arrhythmias as a cause for her episodic lightheadedness. The other possibility would be orthostatic hypotension. given the fact that her blood pressure has been quite labile. I instructed her to take her blood pressure if she develops any recurrent lightheadedness. She should also seek medical atten tion if she develops any fever or signs or symptoms of urinary tract infection. /[id number]/MODL
--- NOTE | 2017-05-01 15:10 | CPEKG ---
Heart Rate: 67 RR Interval: 896 P-R Interval: 212 QRSD Interval: 82 QT Interval: 428 QTC Interval: 452 P [place]: 145 QRS [place]: -20 T Wave [place]: 140 EKG Severity - ABNORMAL ECG - EKG Impression: SINUS OR ECTOPIC ATRIAL RHYTHM EKG Impression: LEFT ATRIAL ABNORMALITY EKG Impression: BORDERLINE LEFT AXIS DEVIATION EKG Impression: ABNORMAL T, CONSIDER ISCHEMIA, LATERAL LEADS Electronically Signed By: López Arora 02-May-2017 07:29:46
== END 2017-04-29 10:34 | disposition home or self-care (01) ==
LOC: EDUNIT# → F3N 23:12
PROVIDERS: ADMIT Student in an Organized Health Care Education/Training Program; ATTEND Student in an Organized Health Care Education/Training Program
DX: R42 Dizziness and giddiness (principal); I10 Essential (primary) hypertension; K21.9 Gastro-esophageal reflux disease without esophagitis; R82.71 Bacteriuria; I25.10 Atherosclerotic heart disease of native coronary artery without angina pectoris; I48.91 Unspecified atrial fibrillation
CPT/HCPCS: 71045; 93005; G0378; J2405; J2550; 96374

== ENCOUNTER 2017-06-13 08:06 | Emergency (ER) | payer OTHER, MEDICARE ==
--- NOTE | 2017-06-13 08:15 | EDPHY ---
H & P Time Seen by Provider: 06/13/17 08:14 HPI/ROS: CHIEF COMPLAINT: Transient confusion HISTORY OF PRESENT ILLNESS: The patient reportedly awoke today with confusion. She reports being somewhat disoriented to time and place. She denies any acute headache, numbness, weakness, recent fever, fall, dysuria or infectious symptoms. The patient's was concerned and contacted paramedics. She arrives and is entirely asymptomatic at this point time. The patient denies prior history of stroke or TIA. The patient does take 81 mg of aspirin on a daily basis. The patient does have a history of hypertension and has not yet taking her morning medications. The patient was admitted to the hospital in October of 2016 with hypertensive encephalopathy and ataxia. During that time she was evaluated with MRI imaging of the brain and central vessels which demonstrated no evidence of an acute stroke or flow limiting stenosis. REVIEW OF SYSTEMS: A comprehensive 10 point review of systems is otherwise negative aside from elements mentioned in the history of present illness. Source: Patient, EMS - Personal History Tetanus Vaccine Date: 2012 - Medical/Surgical History Hx Asthma: No Hx Chronic Respiratory Disease: No Hx Diabetes: No Hx Cardiac Disease: Yes Hx Renal Disease: No Hx Cirrhosis: No Hx Alcoholism: No Hx HIV/AIDS: No Hx Splenectomy or Spleen Trauma: No Other PMH: HTN, Hyperlipidemia, gerd, vertigo, arthritis, Right breast cancer, 2 bladder surgeries, 2 back surgeries, hysterectomy - Social History Smoking Status: Never smoked - Physical Exam Exam: General Appearance: Elderly female, no acute distress Eyes: Pupils equal and round no pallor or injection ENT, Mouth: Mucous membranes moist Respiratory: There are no retractions, lungs are clear to auscultation Cardiovascular: Regular rate and rhythm Gastrointestinal: Abdomen is soft and nontender, no masses, bowel sounds normal Neurological: A&O x4, normal motor function, normal sensory exam, normal cranial nerves, NIH stroke scale is 0, no abnormal cerebellar findings Skin: Warm and dry, no rashes Musculoskeletal: Neck is supple nontender Extremities: symmetrical, full range of motion Constitutional: Initial Vital Signs Temperature (C) 36 C 06/13/17 08:19 Heart Rate 94 06/13/17 08:19 Respiratory Rate 88 H 06/13/17 08:19 Blood Pressure 194/110 H 06/13/17 08:19 O2 Sat (%) 84 L 06/13/17 08:19 O2 Delivery Mode Room Air Allergies/Adverse Reactions: codeine [Codeine] Allergy (Unknown, Verified 04/28/17 20:45) morphine [Morphine] Allergy (Unknown, Verified 04/28/17 20:45) Penicillins Allergy (Unknown, Verified 04/28/17 20:45) hydrocodone bitartrate [From Vicodin] Allergy (Verified 04/28/17 20:45) Home Medications: Medication Instructions Recorded Carvedilol [Coreg (*)] 12.5 mg PO BIDMEAL 11/26/12 Simvastatin [Zocor 40 mg] 40 mg PO HS 11/26/12 Multivitamins [Multivitamin (*)] 1 each PO DAILY 03/20/15 Acetaminophen [Tylenol ES 500 mg 500 mg PO Q6 PRN 10/30/16 (*)] Trimethoprim [TRIMPEX 100MG (*)] 100 mg PO DAILY 10/30/16 Omeprazole [Prilosec 20 mg] 40 mg PO DAILY 01/20/17 celeCOXIB [Celebrex (*)] 200 mg PO DAILY 01/20/17 Aspirin [Aspirin 81mg (*)] 81 mg PO DAILY 04/29/17 Herbals/Supplements -Info Only 1 ea PO DAILY 04/29/17 Lisinopril [Zestril 20 mg (*)] 20 mg PO BID 04/29/17 Propylene Glycol/Peg 400 [SYSTANE 1 drop EACHEYE DAILY PRN 04/29/17 0.3-0.4% EYE DROPS] Ranitidine HCl 06/13/17 Medical Decision Making - Diagnostics EKG Interpretation: EKG: Complete interpretation has been separately recorded in the [employer] archive. Summary impression: Sinus rhythm ED Course/Re-evaluation: The patient presents to the ED after an episode of transient confusion. The patient's blood pressure on my check was 180/100 her NIH stroke scale is 0, her mentation is appropriate. She has no abnormal findings on her initial history and physical exam. The patient's laboratory studies are within normal limits. Her urinalysis demonstrates no evidence of a urinary tract infection I reviewed the patient's past medical records she has had recent imaging of her carotid or vertebral vessels which demonstrated no evidence of flow limiting stenosis or dissection. The patient did not have symptoms consistent with a localizing TIA. She had transient confusion which improved. She had mild hypertension upon arrival which resolved without treatment. Blood pressure is currently 160/90. The patient is currently on a baby aspirin. I do not feel that further workup is indicated at this point time. The patient will be discharged home and instructed to return to the emergency department for the development of any acute neurologic symptoms, uncontrolled hypertension or other concerns. She will follow up as scheduled with her regular physician. Differential Diagnosis: Differential diagnosis considered includes TIA, stroke, metabolic abnormality, dehydration, hypertensive encephalopathy - Data Points Laboratory Results: Laboratory Results 06/13/17 08:10 06/13/17 08:10 06/13/17 06/13/17 06/13/17 09:07 08:10 08:10 WBC 4.87 10^3/uL 10^3/uL (3.80-9.50) RBC 4.67 10^6/uL 10^6/uL (4.18-5.33) Hgb 16.3 g/dL g/dL (12.6-16.3) Hct 48.3 % H % (38.0-47.0) MCV 103.4 fL H fL (81.5-99.8) MCH 34.9 pg H pg (27.9-34.1) MCHC 33.7 g/dL g/dL (32.4-36.7) RDW 13.0 % % (11.5-15.2) Plt Count 144 10^3/uL L 10^3/uL (150-400) MPV 10.7 fL fL (8.7-11.7) Neut % (Auto) 52.9 % % (39.3-74.2) Lymph % (Auto) 32.2 % % (15.0-45.0) [place] % (Auto) 9.4 % % (4.5-13.0) Eos % (Auto) 4.9 % % (0.6-7.6) Baso % (Auto) 0.4 % % (0.3-1.7) Nucleat RBC Rel Count 0.0 % % (0.0-0.2) Absolute Neuts (auto) 2.57 10^3/uL 10^3/uL (1.70-6.50) Absolute Lymphs (auto) 1.57 10^3/uL 10^3/uL (1.00-3.00) Absolute Monos (auto) 0.46 10^3/uL 10^3/uL (0.30-0.80) Absolute Eos (auto) 0.24 10^3/uL 10^3/uL (0.03-0.40) Absolute Basos (auto) 0.02 10^3/uL 10^3/uL (0.02-0.10) Absolute Nucleated RBC 0.00 10^3/uL 10^3/uL (0-0.01) Immature Gran % 0.2 % % (0.0-1.1) Immature Gran # 0.01 10^3/uL 10^3/uL (0.00-0.10) Sodium 143 mEq/L mEq/L (135-145) Potassium 4.5 mEq/L mEq/L (3.5-5.2) Chloride 102 mEq/L mEq/L (97-110) Carbon Dioxide 24 mEq/l mEq/l (22-31) Anion Gap 17 mEq/L H mEq/L (8-16) BUN 16 mg/dL mg/dL (7-23) Creatinine 1.0 mg/dL mg/dL (0.6-1.0) Estimated GFR 52 Glucose 102 mg/dL H mg/dL (70-100) Calcium 10.4 mg/dL mg/dL (8.5-10.4) Urine Color PALE YELLOW Urine Appearance CLEAR Urine pH 5.0 (5.0-7.5) Ur Specific [place] 1.009 (1.002-1.030) Urine Protein NEGATIVE (NEGATIVE) Urine Ketones NEGATIVE (NEGATIVE) Urine Blood NEGATIVE (NEGATIVE) Urine Nitrate NEGATIVE (NEGATIVE) Urine Bilirubin NEGATIVE (NEGATIVE) Urine Urobilinogen NEGATIVE EU EU (0.2-1.0) Ur Leukocyte Esterase NEGATIVE (NEGATIVE) Urine Glucose NEGATIVE (NEGATIVE) Departure - Departure Disposition: Home, Routine, Self-Care Clinical Impression: Altered mental status Condition: Good Instructions: Altered Mental Status (ED) Additional Instructions: 1. Please schedule a follow-up appointment with your primary care provider for a recheck within the week. 2. Please return to the ED for the development of any recurrent neurologic symptoms, fever, headache, uncontrolled blood pressure or other concerns. Referrals: Patient,NotPresent [Unknown] - As per Instructions
[2017-06-13 08:22] VITALS: TEMP 96.8
[2017-06-13 08:32] LABS: PLATELET COUNT 144 10^3/uL (150-400)
--- NOTE | 2017-06-13 08:35 | CPEKG ---
Heart Rate: 71 RR Interval: 845 P-R Interval: 196 QRSD Interval: 78 QT Interval: 404 QTC Interval: 439 P [place]: 37 QRS [place]: -25 T Wave [place]: 33 EKG Severity - BORDERLINE ECG - EKG Impression: SINUS RHYTHM Electronically Signed By: Ottoniel Klein 13-Jun-2017 08:57:54
[2017-06-13 09:10] VITALS: RESP 16
[2017-06-13 11:14] VITALS: BP 161/91; PULSE 77; O2SAT 96
== END 2017-06-13 11:11 | disposition home or self-care (01) ==
LOC: EDUNIT#
DX: R41.82 Altered mental status, unspecified (principal); I10 Essential (primary) hypertension; Z85.3 Personal history of malignant neoplasm of breast; Z79.82 Long term (current) use of aspirin

== ENCOUNTER 2017-07-28 11:01 | Observation (INO) | payer OTHER, MEDICARE ==
--- NOTE | 2017-07-28 11:38 | CPEKG ---
Heart Rate: 68 RR Interval: 882 P-R Interval: 208 QRSD Interval: 82 QT Interval: 404 QTC Interval: 430 P [place]: 31 QRS [place]: -15 T Wave [place]: 38 EKG Severity - OTHERWISE NORMAL ECG - EKG Impression: SINUS RHYTHM EKG Impression: BORDERLINE LEFT AXIS DEVIATION Electronically Signed By: Kelby Leon 28-Jul-2017 16:12:41
[2017-07-28 12:47] LABS: PLATELET COUNT 140 10^3/uL (150-400)
--- NOTE | 2017-07-28 12:52 | EDPHY ---
H & P Smoking Status: Never smoked Time Seen by Provider: 07/28/17 12:06 HPI/ROS: CHIEF COMPLAINT: Syncopal episode HISTORY OF PRESENT ILLNESS: 87-year-old male presents to the emergency department after having a syncopal episode. The patient was sitting in her car waiting for her to come out of the grocery store and when he came back she was drooling and difficult to arouse. He states that it took approximately 5 min to wake her up. He put her seatbelt on her and then brought her to the emergency department for evaluation. The patient remembers sitting in the car and wanting to open the door to get some air. No reports of trauma. No chest pain or difficulty breathing. The patient's only complaint is that she feels "tired.". Her states that she has had the complaint of being tired for several months. She has an appoint with a environmental health technologist in a week. The states 5 days ago she was at home and was feeling weak and dizzy and he lowered her to the ground and she had a syncopal episode. She refused to go to the hospital at that time for evaluation. She currently has no pain in her chest or difficulty breathing. No headache. No neck or back pain. REVIEW OF SYSTEMS: Constitutional: No fever, no chills. Eyes: No double or blurry vision. ENT: No sore throat. Respiratory: No cough, no shortness of breath. Cardiac: No chest pain. Gastrointestinal: No abdominal pain, vomiting or diarrhea. Genitourinary: No dysuria. Musculoskeletal: No neck or back pain. Skin: No rashes. Neurological: No headache. (Mary Saldaña) Past Medical/Surgical History: Hypertension, dyslipidemia, GERD, vertigo, breast cancer, hysterectomy, bladder surgery, chronic urinary tract infections on antibiotics (Mary Saldaña) Social History: , retired nurse (Mary Saldaña) Physical Exam: General Appearance: Alert, no distress. Mentating normally and answering questions appropriately. at bedside. Eyes: Pupils equal and round. Extraocular motions are all intact. ENT: Mouth: Mucous membranes moist. Respiratory: No wheezing, rhonchi, or rales, lungs are clear to auscultation. Cardiovascular: Regular rate and rhythm. Gastrointestinal: Abdomen is soft and nontender, no masses, no rebound or guarding, bowel sounds normal. Neurological: Alert and oriented x 3, cranial nerves II through XII grossly intact Skin: Warm and dry, no rashes. Musculoskeletal: Nontender to palpate along the cervical, thoracic or lumbar spine. Neck is supple. Extremities: Full range of motion and no peripheral edema. Psychiatric: Patient is oriented X 3, there is no agitation. (Mary Saldaña) Constitutional: Initial Vital Signs Temperature (C) 36.4 C 07/28/17 11:08 Heart Rate 72 07/28/17 11:08 Respiratory Rate 17 07/28/17 11:08 Blood Pressure 104/61 07/28/17 11:08 O2 Sat (%) 94 07/28/17 11:08 O2 Delivery Mode Room Air Allergies/Adverse Reactions: codeine [Codeine] Allergy (Unknown, Verified 07/28/17 11:07) morphine [Morphine] Allergy (Unknown, Verified 07/28/17 11:07) Penicillins Allergy (Unknown, Verified 07/28/17 11:07) hydrocodone bitartrate [From Vicodin] Allergy (Verified 07/28/17 11:07) Home Medications: Medication Instructions Recorded Carvedilol [Coreg (*)] 12.5 mg PO BIDMEAL 11/26/12 Simvastatin [Zocor 40 mg] 40 mg PO HS 11/26/12 Multivitamins [Multivitamin (*)] 1 each PO DAILY 03/20/15 Acetaminophen [Tylenol ES 500 mg 500 mg PO Q6 PRN 10/30/16 (*)] Trimethoprim [TRIMPEX 100MG (*)] 100 mg PO DAILY 10/30/16 Omeprazole [Prilosec 20 mg] 20 mg PO DAILY 01/20/17 Aspirin [Aspirin 81mg (*)] 81 mg PO DAILY 04/29/17 Herbals/Supplements -Info Only 1 ea PO DAILY 04/29/17 Propylene Glycol/Peg 400 [SYSTANE 1 drop EACHEYE DAILY PRN 04/29/17 0.3-0.4% EYE DROPS] Ranitidine HCl [Zantac] 150 mg PO HS 06/13/17 Lisinopril [Zestril 10 mg (*)] 10 mg PO BID 07/29/17 celeCOXIB [CeleBREX] 100 mg PO BID 07/29/17 Medical Decision Making ED Course/Re-evaluation: Pleasant 87-year-old female presents after having likely syncopal episode today. The patient had a syncopal episode 5 days prior as well. Laboratory studies are pending. I recommended admission to the hospital on dance artist for observation. They were both in agreement. The patient will be admitted to Dr. Nehal Rodriguez to the PCU. (Mary Saldaña) I did not see this patient while she was in the emergency department. However her care was discussed with the PA while the patient was in the department. I agree with treatment plan and management (Kelby Leon) Differential Diagnosis: Syncope including but not limited to vasovagal syncope, arrhythmia, dehydration , and blood loss. (Mary Saldaña) - Data Points Laboratory Results: Laboratory Results 07/28/17 11:40 07/28/17 11:40 Medications Given: Aspirin (Aspirin) 81 mg PO DAILY RADHA Stop: 01/25/18 08:59 Last Admin: 07/29/17 09:15 Dose: 81 mg Atorvastatin Calcium (Lipitor) 20 mg PO HS RADHA Stop: 01/24/18 20:59 Last Admin: 07/28/17 20:49 Dose: 20 mg Carvedilol (Coreg) 12.5 mg PO BIDMEAL RADHA Stop: 01/24/18 17:59 Last Admin: 07/29/17 09:15 Dose: 12.5 mg Enoxaparin Sodium (Lovenox) 40 mg SC DAILY RADHA Stop: 01/25/18 08:59 Last Admin: 07/29/17 09:16 Dose: 40 mg Famotidine (Pepcid) 20 mg PO HS RADAH Stop: 01/24/18 20:59 Last Admin: 07/28/17 20:49 Dose: 20 mg Multivitamins (Tab-A-Tamara) 1 each PO DAILY RADHA Stop: 01/25/18 08:59 Last Admin: 07/29/17 09:16 Dose: 1 each Pantoprazole Sodium (Protonix) 40 mg PO DAILY RADHA Stop: 01/25/18 08:59 Last Admin: 07/29/17 09:16 Dose: 40 mg Discontinued Medications Celecoxib (Celebrex) 200 mg PO DAILY RADHA Stop: 01/25/18 08:59 Last Admin: 07/29/17 09:16 Dose: 200 mg Lisinopril (Zestril) 10 mg PO BID RADHA Stop: 01/24/18 20:59 Last Admin: 07/29/17 09:16 Dose: 10 mg Departure - Departure Disposition: [facility] In[facility] Acute Clinical Impression: Syncope Qualifiers: Syncope type: unspecified Qualified Code(s): R55 - Syncope and collapse Condition: Good
[2017-07-28] MEDS ORDERED: ACETAMINOPHEN 325 MG TAB PO PRN (14:41)
[2017-07-28] MEDS ORDERED: Propylene Glycol/Peg 400 [Systane 0.3-0.4% Eye Drops] EACHEYE PRN (15:00)
--- NOTE | 2017-07-28 15:41 | GHP ---
[f rep st] HISTORY AND PHYSICAL DATE OF ADMISSION: 07/28/2017 CHIEF COMPLAINT: Syncope. HISTORY OF PRESENT ILLNESS: The patient is an 87-year-old with a history significant for hypertensio n and atrial fibrillation, who comes in with syncope. Apparently, she and her went out for [employer] this morning, and she felt fine. After breakfast, they went to [employer] to do the shopp ing, and her went in, and the patient opted to stay in the car and wait for him. She said wh ile she was in the car, she started to feel pretty hot, opened the door a little bit to get some air, and started to feel faint. The when he got back to the car, he found the door ajar, and she was slumped over in her seat. She had been drooling, but no other incontinence or signs of trauma. He shook her gently trying to wake her up, and was trying to get her seatbelt back on, when she grad ually woke up. When she woke up, she said she knew where she was. She was not confused and she felt fine, except for feeling tired. At that time, her and her spoke and they opted to come to [facility] for further evaluation and treatment. She denies any chest pain, palpitations, shortness of br eath, but she was slightly diaphoretic, because she was hot before she fainted. Her recalls about 5 days ago, she was in the kitchen getting some Coke, and she yelled out that she was feeling f aint, so her ran into to help her, gently lowered her to the ground where she was out maybe a second or two. She typically has high blood pressure and is quite compliant with her medications. Her blood pressure at home generally runs 140-160 systolic. She never feels any palpitations, but do es have a history of atrial fibrillation and is on aspirin due to her fall risk and fainting. REVIEW OF SYSTEMS: A 10-point review of systems was done and otherwise negative, except as noted in the HPI. GENERAL: Fatigue. No weight changes. No fevers or chills. EYES: No change. EARS: No change. NECK: No change. CARDIOVASCULAR: Negative. PULMONARY: Negative. GI: Negative. NEUROL OGIC: See HPI. MUSCULOSKELETAL: Negative. SKIN: Negative. PSYCH: Negative. PAST MEDICAL HISTORY: 1. Mild dementia. 2. Chronic interstitial cystitis. 3. Atrial fibrillation, CHADS2 score of 2, currently on aspirin. 4. History of breast cancer in 2004, in remission. 5. Dyslipidemia, on statin. 6. Hypertension. 7. Osteoarthritis. 8. Osteopenia. SURGICAL HISTORY: Includes bladder surgery, hysterectomy, low back surgery, and lumpectomy of right breast. SOCIAL HISTORY: She is . Her and live together in their own home. She never smoked. She rarely drinks alcohol. They have 2 kids. CODE STATUS: She wishes to be a do not resuscitate. FAMILY HISTORY: Parents are . CURRENT MEDICATIONS: Include carvedilol 12.5 mg b.i.d., lisinopril 10 mg twice a day, simvastatin 40 mg daily, and omeprazole 40 mg a day, aspirin 81 daily. ALLERGIES: Bactrim, which causes nausea. Cephalexin causes diarrhea. She has an allergy to codeine , morphine, Levaquin causes altered mental status and nausea. PHYSICAL EXAM: VITAL SIGNS: On admission to the ER, her blood pressure was 104/61, with a heart rat e of 72. She is afebrile. She is 94% on room air. GENERAL: She is a very pleasant 87-year-old wit h some mild cognitive deficits, but she is alert. HEENT: Pupils are equal. Extraocular movements intact. Mucous membranes are moist. Oropharynx is clear. NECK: Supple. No adenopathy. HEART: Regular with a systolic murmur, and a mild gallop. LUNGS: C lear bilaterally. No wheeze or rhonchi. ABDOMEN: Soft, nontender. No masses. EXTREMITIES: No cl ubbing, cyanosis, or edema. Pulses intact distally. SKIN: No rash. NEUROLOGIC: Her speech is flu ent. She is alert. Moves all 4 extremities. MUSCULOSKELETAL: No joint deformities or effusions. LABORATORY DATA: CBCs within normal limits, with a mildly elevated MCV. Chemistry shows normal elec trolytes. Creatinine slightly elevated at 1.2. Troponin is negative. TSH is normal to slightly edvin vated at 4.01. EKG, personally reviewed and interpreted, shows sinus rhythm. ASSESSMENT AND PLAN: 1. An 87-year-old presents with a syncopal event and near syncopal event 5 days earlier. Given the circumstances, it does appear to be vasovagal and likely heat related, however, she has had multiple episodes in the recent past of near syncope, so I think it would be worthwhile to fully evaluate her with an echocardiogram, which has not been done in quite some time. She also will need to be monitor ed on telemetry given her history of atrial fibrillation to rule out paroxysmal asymptomatic atrial f ibrillation. She did have a recent carotid Doppler study in January, which showed mild disease on th e right and mild to moderate disease on the left, with approximately 30% to 40% stenosis. I will not repeat that. 2. Atrial fibrillation, currently in sinus, but we will continue monitoring on telemetry and conside r Holter monitor or event monitor if this is unremarkable. She is currently a CHADS2 score, and has been on aspirin due to her history of frequent syncope. We will continue that for now. 3. Hypertension. This is been fairly labile. It came in low this morning. However, she typically runs between 140-160 systolic. We will consider to monitor this. I would like her to run on the hig h side, given her history of near syncope. 4. Dyslipidemia, currently on a statin. 5. Elevated MCV, borderline vitamin B12 level, in clinic we will add a methylmalonic acid to her blo od work. 6. Borderline thyroid level. We will repeat that today, consider treating given her fatigue, if it is continuing to be in the high normal range. 7. Mild cognitive deficits. Patient is stable and at baseline. We will continue physical therapy a nd occupational therapy while she is here. 8. Code status: The patient wishes to be do not resuscitate. 9. Deep vein thrombosis prophylaxis, we will start low-molecular weight heparin. /[id number]/MODL
[2017-07-28] MEDS: CARVEDILOL 6.25 MG TAB PO SCH (18:36)
[2017-07-28] MEDS: LISINOPRIL 10 MG TAB PO SCH (20:49)
[2017-07-28] MEDS ORDERED: ATORVASTATIN CALCIUM 20 MG TAB PO SCH (21:00)
[2017-07-28] MEDS ORDERED: FAMOTIDINE 20 MG TAB PO SCH (21:00)
[2017-07-29 04:11] LABS: PLATELET COUNT 115 10^3/uL (150-400)
[2017-07-29] MEDS ORDERED: ASPIRIN 81 MG CHEWABLE TAB PO SCH (09:00)
[2017-07-29] MEDS ORDERED: PANTOPRAZOLE SODIUM 40 MG TAB PO SCH (09:00)
[2017-07-29] MEDS ORDERED: ENOXAPARIN 40 MG/0.4 ML SYR SC SCH (09:00)
[2017-07-29] MEDS ORDERED: MULTIVITAMINS 1 EACH TAB PO SCH (09:00)
[2017-07-29] MEDS ORDERED: TRIMETHOPRIM 100 MG TAB PO SCH ×2 (09:00→10:45)
[2017-07-29] MEDS: CARVEDILOL 6.25 MG TAB PO SCH (09:15)
[2017-07-29] MEDS: LISINOPRIL 10 MG TAB PO SCH (09:16)
--- NOTE | 2017-07-29 10:33 | HOSPPROG ---
Hospitalist Progress Note Assessment/Plan: 87-year-old with recurrent syncope and near-syncope. Is admitted with another syncopal event. I suspect this may be related to heat syncope but given her recurrent ER admissions in history of AFib a cardiac workup was done Carotid Dopplers show moderate blockage Echo is pending She will need an event monitor on discharge with Cardiology follow-up She has had no further episodes during her admission here Once echo is back will likely DC home once event monitor is set up Subjective: Doing well. Ready to go home Objective: Vital Signs Temp Pulse Resp BP Pulse Ox 36.5 C 90 13 140/67 H 97 07/29/17 07:02 07/29/17 09:15 07/29/17 07:02 07/29/17 07:02 07/29/17 07:02 Laboratory Results 07/29/17 03:39 07/29/17 03:39 07/28/17 07/29/17 07/30/17 05:59 05:59 05:59 Intake Total 680 Output Total 650 300 Balance 30 -300 - Physical Exam Constitutional: no apparent distress Cardiovascular: regular rate and rhythym Respiratory: no respiratory distress ICD10 Worksheet Patient Problems: Problems Problem Status Onset hypertension Active Primary osteoarthritis of right hip Acute Severe sepsis Acute Hypoxia Acute Weakness Acute Hypertensive urgency Acute Diarrhea Acute Lightheadedness Acute Syncope Acute
--- NOTE | 2017-07-29 10:54 | ASMTCMCOM ---
CM Note CM Note Notes: 07/29/2017 Case Management Note Met w/pt and Danny. JUAN M signed. Danny can be reached through his home phone number. Pt lives independently in a free standing home with Danny in [facility]. They have no family in the area but supportive neighbors. They have a lawn service and a supervisor polishing who comes every 2 weeks. Danny drives pt to all appointments and the grocery store. Pt is able to cook meals at home. Pt was independent in ADL's prior to admission. Dr. Nehal Rodriguez is primary MD. Case Management d/c poc: anticipating home independent. PT and OT to evaluate today. Case Management to follow. Date Signed: 07/29/2017 10:53 AM Electronically Signed By:Nataliia Lucas RN
[2017-07-29 11:11] VITALS: BP 120/64
--- NOTE | 2017-07-29 13:59 | ASDISCHSUM ---
Discharge Information Plan Status:Home with No Needs Medically Cleared to Leave:07/29/2017 Discharge Date:07/29/2017 CM D/C Disposition:Home, Routine, Self-Care ADT D/C Disposition:Home, Routine, Self-Care Projected Discharge Date:07/29/2017 Transportation at D/C:Family Discharge Delay Reason: Follow-Up Date:07/29/2017 Discharge Slot: Final Diagnosis: Placement Information Patient Contact Information Contact Name:SHAHNAZ Relationship:George Address:[address] Work Phone: City:[place] [facility] [place] Phone: State/Zip Code:[place] [address] Email: Financial Information Financial Class:Medicare Primary Plan Desc:MEDICARE OUTPATIENT Primary Plan Number:[id number] Secondary Plan Desc:[employer]ARP/MDR SUPPLEMENT Secondary Plan Number:[id number] Assessment Information LACE LACE Length of stay for Answers: 1 day current admission Acuity / Level of Answers: No Care: Did the patient have an inpatient admission? Comorbidities - select Answers: Any tumor (including all that apply lymphoma or leukemia) Other Notes: HTN, dyslipidemia, GERD , v ertigo, chronic UTI on antibiotics # of Emergency department Answers: 3-4 visits in the last 6 months Score: 7 Date Signed: 07/29/2017 01:57 PM Electronically Signed By:Nataliia Lucas RN [facility] Progress Note CM Note CM Note Notes: 07/29/2017 Case Management Note Met w/pt and Danny. JUAN M signed. Danny can be reached through his home phone number. Pt lives independently in a free standing home with Danny in [facility]. They have no family in the area but supportive neighbors. They have a lawn service and a rubbing bed operator who comes every 2 weeks. Bill drives pt to all appointments and the grocery store. Pt is able to cook meals at home. Pt was independent in ADL's prior to admission. Dr. Nehal Rodriguez is primary MD. Case Management d/c poc: anticipating home independent. PT and OT to evaluate today. Case Management to follow. Date Signed: 07/29/2017 10:53 AM Electronically Signed By:Nataliia Lucas RN Case Management Discharge Plan Note Case Management Discharge Discharge Order Complete? Answers: Yes Patient to Obtain Answers: via Family Medications Transportation Arranged Answers: Family/Friends Family Notified Answers: Yes Notes: in room Discharge Comments Notes: 07/29/2017 Case Management Note Pt to d/c independent with follow up as directed. to transport home. Date Signed: 07/29/2017 01:58 PM Electronically Signed By:Nataliia Lucas RN Intervention Information Intervention Type:*MCGOWAN-Signed Date of Service:07/29/2017 10:49 AM Patient Type:Observation Staff Member:JOSSELIN Lucas Hillary Hours: Discipline: Severity: Comment:
--- NOTE | 2017-07-29 14:06 | GDS ---
[f rep st] DISCHARGE SUMMARY DIAGNOSES: 1. Syncope/near syncope. 2. Paroxysmal atrial fibrillation. 3. Hypertension. 4. Cognitive deficits. 5. Chronic interstitial cystitis. 6. History of breast cancer. 7. Dyslipidemia. 8. Osteoarthritis. PROCEDURES DONE: 1. Carotid Dopplers showing moderate plaque, right greater than left. 2. Echocardiogram. 3. Telemetry monitoring. HOSPITAL COURSE: The patient is an 87-year-old who comes in with recurrent syncope. She has had [facility] admissions to the emergency department and near syncope at home. Evaluation included the above procedures. It is still unclear as to the nature of her syncope. However, this admission, I suspec t she may have had heat syncope. I will order an event monitor to be done over the next [address], she will follow up with Cardiology regarding the results. Depending on what they find, the y can determine if she needs further anticoagulation for her history of AFib; currently she is on asp irin for a CHADS score of 2 and her fall risk. Other than that, she feels back to baseline. CONDITION ON DISCHARGE: Good. DISCHARGE MEDICATIONS: Please see home med reconciliation form. FOLLOWUP INSTRUCTIONS: Follow up with her primary care provider as scheduled. /[id number]/MODL
[2017-07-29] MEDS ORDERED: LISINOPRIL 10 MG TAB PO SCH (21:00)
== END 2017-07-29 15:10 | disposition home or self-care (01) ==
LOC: F2W 14:00
PROVIDERS: ADMIT Internal Medicine; ATTEND Internal Medicine
DX: R55 Syncope and collapse (principal); I65.23 Occlusion and stenosis of bilateral carotid arteries; I48.0 Paroxysmal atrial fibrillation; I10 Essential (primary) hypertension; R41.89 Other symptoms and signs involving cognitive functions and awareness; N30.10 Interstitial cystitis (chronic) without hematuria; Z85.3 Personal history of malignant neoplasm of breast; E78.5 Hyperlipidemia, unspecified; M19.90 Unspecified osteoarthritis, unspecified site; Z88.0 Allergy status to penicillin; F03.90 Unspecified dementia, unspecified severity, without behavioral disturbance, psychotic disturbance, mood disturbance, and anxiety
CPT/HCPCS: 93005; 93306; 93880; 97161; 97165; 99285; G0378; G8978; G8979; G8980; G8987; G8988; G8989; J1650; 83921-90; 84481-90

== ENCOUNTER 2018-05-17 12:02 | Observation (INO) | payer OTHER, MEDICARE ==
[2018-05-17] MEDS ORDERED: NS 500 ML IV ONE ×2 (12:33→13:21)
[2018-05-17 12:45] LABS: PLATELET COUNT 146 10^3/uL (150-400)
[2018-05-17] MEDS ORDERED: ONDANSETRON 4 MG/2 ML VIAL IVP ONE ×2 (12:49→13:21)
[2018-05-17] MEDS ORDERED: FAMOTIDINE 20 MG/NACL 50 ML IV ONE (12:51)
[2018-05-17] MEDS ORDERED: PROMETHAZINE HCL 25 MG/ML INJ IVP ONE ×2 (13:18→13:53)
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
[2018-05-17] MEDS ORDERED: ONDANSETRON DISINTEGRATING 4 MG TAB PO PRN (16:07)
[2018-05-17] MEDS ORDERED: ONDANSETRON 4 MG/2 ML VIAL IVP PRN (16:07)
[2018-05-17] MEDS ORDERED: ACETAMINOPHEN 500 MG TAB PO PRN (16:09)
[2018-05-17] MEDS ORDERED: CARBOXYMETHYLCELLULOSE 0.5% 0.4 ML DROPERETTE EACHEYE PRN (16:09)
[2018-05-17] MEDS: NS 1,000 ML IV SCH (16:41)
[2018-05-17] MEDS: CARVEDILOL 6.25 MG TAB PO SCH (17:10)
--- NOTE | 2018-05-17 18:41 | GHP ---
DATE OF ADMISSION: 05/17/2018 CHIEF COMPLAINT: Syncope. HISTORY OF PRESENT ILLNESS: This is an 88-year-old female with a history of some mild to moderate de mentia and multiple episodes of syncope in the past. She has been worked up, had seen cardiology las t summer, and there was no definitive cause found. She has had short Holter monitors, but not a 30-d ay monitor. There is mention of previous atrial fibrillation, although it is unclear if that is the case. Her Benadryl that she had been taking for allergies was discontinued and her dizziness improve d, and she has not had a syncopal episode since the summer. She was eating at [employer] and noticed that she basically slumped over. She was out for about 15-20 seconds. The patient does not remember this at all. When she came to the emergency department , she was actually nauseous and vomited several times. She is denying any abdominal pain. She was f eeling more fatigued, starting this morning, than average. She denies any diarrhea. No abdominal pa in. No chest pain or shortness of breath. She is still feeling a little bit weak as during the inte rview. No palpitations. No fevers or chills. No dysuria. REVIEW OF SYSTEMS: A 10-point review of systems was obtained and other what is stated is negative. PAST MEDICAL HISTORY: 1. Mild dementia. 2. Chronic interstitial cystitis. 3. GERD. 4. Possible atrial fibrillation. 5. History of breast cancer. 6. Hyperlipidemia. 7. Hypertension. MEDICATIONS: Reviewed. SOCIAL HISTORY: No smoking. Lives with her . FAMILY HISTORY: Both parents are . PHYSICAL EXAMINATION: VITAL SIGNS: Afebrile, blood pressure is 154/82, heart rate 64, oxygen satura tion 94% on room air. GENERAL: The patient is well-developed, no apparent distress. HEENT: Nonict milly sclerae. Extraocular movements intact. Moist mucous membranes. Hearing is decreased. NECK: Supple. No thyromegaly. LUNGS: Good effort. Clear to auscultation bilaterally. CARDIOVASCULAR: Regular rate and rhythm. No murmurs, gallops. ABDOMEN: Positive bowel sounds. Soft, nontender, no ndistended. No hepatosplenomegaly. EXTREMITIES: No clubbing, cyanosis, or edema. SKIN: Without r kory, dry, intact. NEUROLOGIC: Alert and oriented x3. 5/5 strength in all 4 extremities. PSYCH: N ormal affect. LABORATORY DATA: Sodium a little bit low at 134. Creatinine is a little bit up at 1.2, with a creat inine last year of 0.9. BUN also a little bit up. LFTs are normal. Head CT shows no acute findings. EKG shows a normal sinus rhythm. ASSESSMENT: This is an 88-year-old female, with extensive previous history of syncope, with multiple admissions for the same, presenting with syncope. PLAN: 1. Syncope. Patient has been worked up considerably in the past. I wonder if she might have a kylee le bit of a gastroenteritis and some dehydration that might have induced this. It does seem like she has vasovagal syncope. I do not think we are going to repeat any of this workup. I am going to mon itor overnight on telemetry. We will give a little bit of fluid. Will see how she does with physica l therapy and occupational therapy in the morning. 2. Mild dementia. 3. Hypertension. Will continue her medications. 4. Mild acute renal failure. Will give IV fluids and recheck tomorrow. 5. The patient is a DNR according to her MOLST form. /[id number]/MODL
[2018-05-17] MEDS: ACETAMINOPHEN 325 MG TAB PO PRN (18:56)
[2018-05-17] MEDS: LISINOPRIL 10 MG TAB PO SCH (20:22)
[2018-05-17] MEDS ORDERED: ATORVASTATIN CALCIUM 20 MG TAB PO SCH (21:00)
[2018-05-17] MEDS ORDERED: FAMOTIDINE 20 MG TAB PO SCH (21:00)
[2018-05-18] MEDS: ACETAMINOPHEN 325 MG TAB PO PRN (00:26)
[2018-05-18 04:17] LABS: PLATELET COUNT 102 10^3/uL (150-400)
[2018-05-18] MEDS: NS 1,000 ML IV SCH (04:49)
[2018-05-18] MEDS: CARVEDILOL 6.25 MG TAB PO SCH (08:05)
[2018-05-18] MEDS: LISINOPRIL 10 MG TAB PO SCH (08:05)
[2018-05-18] MEDS ORDERED: PANTOPRAZOLE SODIUM 40 MG TAB PO SCH (09:00)
[2018-05-18] MEDS ORDERED: TRIMETHOPRIM 100 MG TAB PO SCH (09:00)
[2018-05-18] MEDS ORDERED: ASPIRIN 81 MG CHEWABLE TAB PO SCH (09:00)
[2018-05-18 12:41] VITALS: BP 107/54
--- NOTE | 2018-05-18 12:45 | PDDCSUM ---
Discharge Summary Discharge Summary: Discharge diagnosis Syncope Hypertension Mild dementia Chronic interstitial cystitis Hyperlipidemia Patient is an 80-year-old female with past medical history of mild dementia, hypertension, chronic interstitial cystitis, hyperlipidemia, GERD who presented with a syncopal episode. She was clinically dehydrated and had an acute kidney injury as well. CT head was negative. Her chart was reviewed and it looks as though she has had an extensive workup for this quite recently. She was monitored on telemetry and had no overnight events. Vital signs remained stable. Workup in the past and this admission were suggestive of dehydration and vasovagal syncope. She was given intravenous fluids with resolution of her ROALNDA. The patient was stable and wished to go home and so on day 2 of hospitalization she was discharged home to follow up with her primary care physician. She had a Holter monitor in the past and it was suggested that perhaps she should have an event monitor or a 30 day Holter monitor placed for further evaluation.
--- NOTE | 2018-05-18 19:05 | CPEKG ---
Test Reason : OPEN Blood Pressure : / mmHG Vent. Rate : 052 BPM Atrial Rate : 052 BPM P-R Int : 228 ms QRS Dur : 075 ms QT Int : 469 ms P-R-T Axes : 024 -11 051 degrees QTc Int : 437 ms Sinus rhythm Prolonged MN interval Probable left atrial enlargement Low voltage, precordial leads Abnormal R-wave progression, early transition Minimal ST elevation, inferior leads Confirmed by Lilian Nesbitt ([id number]) on 05/18/2018 7:05:13 PM Referred By: Timothy Nesbitt Confirmed By:Lilian Nesbitt
== END 2018-05-18 14:10 | disposition home or self-care (01) ==
LOC: EDUNIT# → F2W 15:12
PROVIDERS: ADMIT Internal Medicine; ATTEND Internal Medicine
DX: R55 Syncope and collapse (principal); R11.10 Vomiting, unspecified; N17.9 Acute kidney failure, unspecified; E86.9 Volume depletion, unspecified; R00.1 Bradycardia, unspecified; F03.90 Unspecified dementia, unspecified severity, without behavioral disturbance, psychotic disturbance, mood disturbance, and anxiety; I10 Essential (primary) hypertension; N30.10 Interstitial cystitis (chronic) without hematuria; E78.5 Hyperlipidemia, unspecified; K21.9 Gastro-esophageal reflux disease without esophagitis; Z79.82 Long term (current) use of aspirin; Z85.3 Personal history of malignant neoplasm of breast; Z90.710 Acquired absence of both cervix and uterus; Z66 Do not resuscitate
CPT/HCPCS: 70450; 93005; 96361; 96365; 96375; 96376; 97161; 97165; 99285; G0378; J2405; J2550; 82607-90; 84484-ER

== ENCOUNTER 2018-05-23 17:21 | Emergency (ER) | payer OTHER, MEDICARE ==
--- NOTE | 2018-05-23 18:01 | EDPHY ---
H & P Stated Complaint: generalized weakness Time Seen by Provider: 05/23/18 17:25 HPI/ROS: CHIEF COMPLAINT: Weakness HISTORY OF PRESENT ILLNESS: This is an 88-year-old female who was discharged from the hospital on May 17 after an admission for syncope, hypertension, in interstitial cystitis who was discharged following day. She re-presented today reporting that this morning when she woke she just felt generally weak. She denies fevers or chills, no complaints of chest pain, shortness of breath, or fainting. Denies palpitations. Denies any urinary complaints. Denies a headache or lightheadedness. REVIEW OF SYSTEMS: A comprehensive 10 system review of systems was reviewed and is otherwise negative aside from elements mentioned in the history of present illness and medical decision making. PAST MEDICAL HISTORY: Hypertension, interstitial cystitis, mild dementia. SOCIAL HISTORY: Patient lives with her . They live independently. VITAL SIGNS Reviewed by me. GENERAL: Well-developed, well-nourished, resting comfortably in no respiratory distress. HEENT: Atraumatic. Eyes: No icterus, no injection. Mouth: moist mucous membranes. No erythema or lesions. Neck: supple with no adenopathy. LUNGS: Clear to auscultation bilaterally, no wheezes, rhonchi or rales. CARDIAC: Regular rate and rhythm, no rubs, murmurs or gallops. ABDOMEN: Soft, nontender, nondistended, bowel sounds normal. BACK: No CVA tenderness. EXTREMITIES: No trauma. No edema. Range of motion is normal throughout. NEURO: Alert and oriented, grossly nonfocal. SKIN: Warm and dry, no rash. PSYCHIATRIC: Normal mentation, no agitation. - Personal History Current Tetanus/Diphtheria Vaccine: Yes Current Tetanus Diphtheria and Acellular Pertussis (TDAP): Yes Tetanus Vaccine Date: 2012 - Medical/Surgical History Hx Asthma: No Hx Chronic Respiratory Disease: No Hx Diabetes: No Hx Cardiac Disease: No Hx Renal Disease: No Hx Cirrhosis: No Hx Alcoholism: No Hx HIV/AIDS: No Hx Splenectomy or Spleen Trauma: No Other PMH: HTN, Hyperlipidemia, gerd, vertigo, arthritis, Right breast cancer, 2 bladder surgeries, 2 back surgeries, hysterectomy, right hip replacement, mild dementia - Social History Smoking Status: Never smoked Constitutional: Initial Vital Signs Temperature (C) 36.6 C 05/23/18 17:21 Heart Rate 73 02/01/19 17:21 Respiratory Rate 16 05/23/18 17:21 Blood Pressure 207/104 H 05/23/18 17:21 O2 Sat (%) 94 05/23/18 17:21 O2 Delivery Mode Room Air Allergies/Adverse Reactions: codeine [Codeine] Allergy (Unknown, Verified 07/28/17 11:07) morphine [Morphine] Allergy (Unknown, Verified 07/28/17 11:07) Penicillins Allergy (Unknown, Verified 07/28/17 11:07) hydrocodone bitartrate [From Vicodin] Allergy (Verified 07/28/17 11:07) Home Medications: Medication Instructions Recorded Carvedilol [Coreg (*)] 12.5 mg PO BIDMEAL 11/26/12 Simvastatin [Zocor 40 mg] 40 mg PO HS 11/26/12 Multivitamins [Multivitamin (*)] 1 each PO DAILY 03/20/15 Acetaminophen [Tylenol ES 500 mg 500 mg PO Q6 PRN 10/30/16 (*)] Trimethoprim [TRIMPEX 100MG (*)] 100 mg PO DAILY 10/30/16 Omeprazole [Prilosec 20 mg] 20 mg PO DAILY 01/20/17 Aspirin [Aspirin 81mg (*)] 81 mg PO DAILY 04/29/17 Herbals/Supplements -Info Only 1 ea PO DAILY 04/29/17 Propylene Glycol/Peg 400 [SYSTANE 1 drop EACHEYE DAILY PRN 04/29/17 0.3-0.4% EYE DROPS] Ranitidine HCl [Zantac] 150 mg PO HS 06/13/17 Lisinopril [Zestril 10 mg (*)] 10 mg PO BID 07/29/17 celeCOXIB [CeleBREX] 100 mg PO BID 07/29/17 Sulfamethox/Tmp 800/160 mg 1 tab PO BID #14 tab 05/23/18 [Bactrim Ds] Medical Decision Making ED Course/Re-evaluation: 88-year-old female presenting with generalized weakness. EKG reveals no acute ischemic changes. Troponin was negative. Labs were unremarkable. Urinalysis appears to be consistent with a urinary tract infection. Patient does have a history of interstitial cystitis but review of the chart demonstrates that she has had urinary tract infections at point in the past. She does not have fever. She has no elevated white blood cell count. Plan is to place the patient on Bactrim, which she states she has had in the past. Urine was sent for culture. She did receive IV saline and reports that she is feeling better. She is here with her . He understands that she should not be driving and the patient agrees as well. She was discharged to home in improved condition with her . Differential Diagnosis: Differential diagnosis of the patient's weakness was considered including but not limited to electrolyte abnormality, anemia, cardiac ischemia, CVA, spinal cord abnormality, and infectious causes. - Data Points Laboratory Results: Laboratory Results 05/23/18 17:15 05/23/18 17:15 Microbiology Results: MICROBIOLOGY 05/23/18 17:15 Urine,Clean Catch Urine Culture - Final Escherichia Coli Medications Given: Discontinued Medications Sodium Chloride (Ns) 500 mls @ 1,000 mls/hr IV EDNOW ONE PRN Reason: Protocol Stop: 05/23/18 19:22 Last Admin: 05/23/18 19:09 Dose: 500 mls Trimethoprim/Sulfamethoxazole (Bactrim Ds Prepack#2) 1 btl TAKEHOME EDNOW ONE Stop: 05/23/18 18:53 Last Admin: 05/23/18 19:09 Dose: 1 btl Departure - Departure Disposition: Home, Routine, Self-Care Clinical Impression: Weakness, Urinary tract infection Condition: Good Instructions: Sulfamethoxazole/Trimethoprim (By mouth), Urinary Incontinence ( ED), Weakness (ED), Urinary Tract Infection in Older Adults (ED) Additional Instructions: Please take antibiotics as directed. Bactrim 1 tablet by mouth every 12 hr for 7 days. Please drink plenty of fluids and get plenty of rest. The urine culture will be available in 24-48 hours. You may call the emergency department at [phone] to obtain results of the culture. Please follow up with her primary care physician regarding her episodes of fainting. It has been suggested that perhaps she should wear Holter monitor. Your primary care physician can help arrange this. Referrals: Patient,NotPresent [Unknown] - As per Instructions Prescriptions: Sulfamethox/Tmp 800/160 mg [Bactrim Ds] 1 tab PO BID #14 tab
[2018-05-23 18:14] LABS: PLATELET COUNT 133 10^3/uL (150-400)
[2018-05-23] MEDS ORDERED: SULFAMET/TMP DS PREPACK#2 BTL TAKEHOME ONE (18:52)
[2018-05-23] MEDS ORDERED: NS 500 ML IV ONE (18:53)
[2018-05-23 19:39] VITALS: BP 170/109
--- NOTE | 2018-05-24 22:49 | CPEKG ---
Test Reason : OPEN Blood Pressure : / mmHG Vent. Rate : 070 BPM Atrial Rate : 070 BPM P-R Int : 196 ms QRS Dur : 081 ms QT Int : 407 ms P-R-T Axes : 066 -11 056 degrees QTc Int : 440 ms Sinus rhythm Atrial premature complex Left atrial enlargement Low voltage, precordial leads Abnormal R-wave progression, early transition Confirmed by Cee Ly ([id number]) on 05/24/2018 10:48:46 PM Referred By: Cee Ly Confirmed By:Cee Ly
--- NOTE | 2018-05-25 16:44 | EDPHY ---
TONY Addendum - Addendum .: Patient's urine culture from 2018 positive for E coli, resistant to Bactrim. I called and discussed with the patient and her . Call in a prescription for nitrofurantoin 100 mg p. O. Twice daily x7 days to the [facility] at the patient's request.
== END 2018-05-23 19:43 | disposition home or self-care (01) ==
LOC: EDUNIT#
DX: N39.0 Urinary tract infection, site not specified (principal); R53.1 Weakness; B96.20 Unspecified Escherichia coli [E. coli] as the cause of diseases classified elsewhere; E86.9 Volume depletion, unspecified; I10 Essential (primary) hypertension; F03.90 Unspecified dementia, unspecified severity, without behavioral disturbance, psychotic disturbance, mood disturbance, and anxiety; E78.5 Hyperlipidemia, unspecified; K21.9 Gastro-esophageal reflux disease without esophagitis; Z87.440 Personal history of urinary (tract) infections; Z85.3 Personal history of malignant neoplasm of breast; Z96.641 Presence of right artificial hip joint; Z90.710 Acquired absence of both cervix and uterus; Z88.0 Allergy status to penicillin

== ENCOUNTER 2018-08-11 15:18 | Observation (INO) | payer OTHER, MEDICARE ==
[2018-08-11] MEDS ORDERED: NITROGLYCERIN 0.4 MG BTL SL ONE (15:29)
[2018-08-11] MEDS ORDERED: NITROGLYCERIN 0.4 MG BTL SL PRN ×2 (15:31→17:21)
--- NOTE | 2018-08-11 15:35 | EDPHY ---
H & P Time Seen by Provider: 08/11/18 15:18 HPI/ROS: CHIEF COMPLAINT: Left-sided chest pain HISTORY OF PRESENT ILLNESS: Patient arrives by EMS for chest pain. She was feeling well yesterday and then woke up at 3:00 a.m. Today. Around 1:00 p.m. Today she developed left-sided upper chest pain which she describes is an ache or tightness which does not radiate. EMS said she had some shortness of breath with the patient denies. Not exertional or pleuritic or positional. Went from 11/29 to 07/30 with nitroglycerin sublingual pre-hospital, oral aspirin also given by EMS. Not associated with fever chills cough or injury. REVIEW OF SYSTEMS: Eye: no change in vision ENT: no sore throat Cardiac: HPI Pulmonary: no cough or SOB Abdomen: no vomiting, diarrhea, abdominal pain Musculoskeletal: no back pain Skin: no rash Neuro: no headache Constitutional: no fever : no urinary symptoms A comprehensive 10 point review of systems is otherwise negative aside from elements mentioned in the history of present illness. PAST MEDICAL HISTORY: Includes hyperlipidemia, hypertension, breast cancer, hip surgery Social history: Nonsmoker, General Appearance: Alert and conversant, cooperative. Eyes: No scleral icterus. ENT, Mouth: Normal mucous membranes. Respiratory: Normal respiratory effort, breath sounds equal, lungs are clear to auscultation. Cardiovascular: Regular rate and rhythm. No murmur. Gastrointestinal: Abdomen is soft and non tender. Neurological: Alert, face symmetric, normal motor and sensory in extremities. Skin: Warm and dry, no rashes. Musculoskeletal: No peripheral edema. No calf tenderness. Normal range of motion of the right shoulder. Psychiatric: Not agitated. Emergency Department course/MDM: Sublingual nitroglycerin given in ED. Plan for chest x-ray troponin D-dimer given history of cancer. Differential diagnosis considered for chest pain including but not limited to myocardial ischemia, aortic dissection, pericarditis, pulmonary embolus, chest wall pain, pleural inflammation and pulmonary infectious causes. 1621: Labs reviewed including negative troponin, D-dimer less than 0.1 times age. 1648: Chest symptoms are completely gone after sublingual nitroglycerin. Admission for risk stratification. Smoking Status: Never smoked Constitutional: Initial Vital Signs Temperature (C) 36.7 C 04/22/19 15:21 Heart Rate 74 08/11/18 15:21 Respiratory Rate 18 08/11/18 15:21 Blood Pressure 180/91 H 08/11/18 15:21 O2 Sat (%) 96 08/11/18 15:21 O2 Delivery Mode Room Air Allergies/Adverse Reactions: codeine [Codeine] Allergy (Unknown, Verified 08/11/18 15:24) morphine [Morphine] Allergy (Unknown, Verified 08/11/18 15:24) Penicillins Allergy (Unknown, Verified 08/11/18 15:24) hydrocodone bitartrate [From Vicodin] Allergy (Verified 08/11/18 15:24) Home Medications: Medication Instructions Recorded Carvedilol [Coreg (*)] 12.5 mg PO BIDMEAL 11/26/12 Simvastatin [Zocor 40 mg] 40 mg PO HS 11/26/12 Multivitamins [Multivitamin (*)] 1 each PO DAILY 03/20/15 Acetaminophen [Tylenol ES 500 mg 500 mg PO Q6 PRN 10/30/16 (*)] Trimethoprim [TRIMPEX 100MG (*)] 100 mg PO DAILY 10/30/16 Omeprazole [Prilosec 20 mg] 20 mg PO DAILY 01/20/17 Aspirin [Aspirin 81mg (*)] 81 mg PO DAILY 04/29/17 Herbals/Supplements -Info Only 1 ea PO DAILY 04/29/17 Ranitidine HCl [Zantac] 150 mg PO HS 06/13/17 Lisinopril [Zestril 10 mg (*)] 10 mg PO BID 07/29/17 celeCOXIB [CeleBREX] 100 mg PO BID 07/29/17 Medical Decision Making - Diagnostics EKG Interpretation: 12-lead EKG interpreted by me; official reading is in computer system. My interpretation is sinus rhythm with borderline left axis low precordial voltage , early RS transition. No acute ST elevation. Imaging Results: Imaging Impressions Chest X-Ray 08/11/18 15:31 Impression: 1. No active cardiopulmonary disease seen. Imaging: I viewed and interpreted images myself Consult/Admit Bed Type: [place] [id number] - Data Points Laboratory Results: Laboratory Results 08/11/18 15:18 08/11/18 15:18 08/11/18 08/11/18 08/11/18 15:30 15:18 15:18 WBC RBC Hgb Hct MCV MCH MCHC RDW Plt Count MPV Neut % (Auto) Lymph % (Auto) [place] % (Auto) Eos % (Auto) Baso % (Auto) Nucleat RBC Rel Count Absolute Neuts (auto) Absolute Lymphs (auto) Absolute Monos (auto) Absolute Eos (auto) Absolute Basos (auto) Absolute Nucleated RBC Immature Gran % Immature Gran # D-Dimer 0.53 ug/mLFEU H ug/mLFEU (0.00-0.50) Sodium 135 mEq/L mEq/L (135-145) Potassium 4.6 mEq/L mEq/L (3.5-5.2) Chloride 98 mEq/L mEq/L (97-110) Carbon Dioxide 25 mEq/l mEq/l (22-31) Anion Gap 12 mEq/L mEq/L (6-14) BUN 23 mg/dL mg/dL (7-23) Creatinine 1.0 mg/dL mg/dL (0.6-1.0) Estimated GFR 52 Glucose 92 mg/dL mg/dL (70-100) Calcium 9.6 mg/dL mg/dL (8.5-10.4) POC Troponin I 0.00 ng/mL ng/mL (0.00-0.08) 08/11/18 15:18 WBC 7.98 10^3/uL 10^3/uL (3.80-9.50) RBC 4.46 10^6/uL 10^6/uL (4.18-5.33) Hgb 15.4 g/dL g/dL (12.6-16.3) Hct 46.2 % % (38.0-47.0) MCV 103.6 fL H fL (81.5-99.8) MCH 34.5 pg H pg (27.9-34.1) MCHC 33.3 g/dL g/dL (32.4-36.7) RDW 13.2 % % (11.5-15.2) Plt Count 161 10^3/uL 10^3/uL (150-400) MPV 11.3 fL fL (8.7-11.7) Neut % (Auto) 57.9 % % (39.3-74.2) Lymph % (Auto) 29.3 % % (15.0-45.0) [place] % (Auto) 9.6 % % (4.5-13.0) Eos % (Auto) 2.3 % % (0.6-7.6) Baso % (Auto) 0.5 % % (0.3-1.7) Nucleat RBC Rel Count 0.0 % % (0.0-0.2) Absolute Neuts (auto) 4.62 10^3/uL 10^3/uL (1.70-6.50) Absolute Lymphs (auto) 2.34 10^3/uL 10^3/uL (1.00-3.00) Absolute Monos (auto) 0.77 10^3/uL 10^3/uL (0.30-0.80) Absolute Eos (auto) 0.18 10^3/uL 10^3/uL (0.03-0.40) Absolute Basos (auto) 0.04 10^3/uL 10^3/uL (0.02-0.10) Absolute Nucleated RBC 0.00 10^3/uL 10^3/uL (0-0.01) Immature Gran % 0.4 % % (0.0-1.1) Immature Gran # 0.03 10^3/uL 10^3/uL (0.00-0.10) D-Dimer Sodium Potassium Chloride Carbon Dioxide Anion Gap BUN Creatinine Estimated GFR Glucose Calcium POC Troponin I Medications Given: Nitroglycerin (Nitrostat) 0.4 mg SL Q5M PRN PRN Reason: Chest Pain Last Admin: 08/11/18 15:32 Dose: 0.4 mg Point of Care Test Results: Chemistry 08/11/18 15:30 POC Troponin I 0.00 ng/mL ng/mL (0.00-0.08) Departure - Departure Disposition: [facility] Inpatient Acute Clinical Impression: Chest pain Qualifiers: Chest pain type: unspecified Qualified Code(s): R07.9 - Chest pain, unspecified Condition: Good
--- NOTE | 2018-08-11 15:38 | CPEKG ---
Test Reason : OPEN Blood Pressure : / mmHG Vent. Rate : 064 BPM Atrial Rate : 064 BPM P-R Int : 214 ms QRS Dur : 068 ms QT Int : 420 ms P-R-T Axes : 012 -26 046 degrees QTc Int : 434 ms Sinus rhythm Borderline prolonged IL interval Left atrial enlargement Borderline left axis deviation Low voltage, precordial leads Abnormal R-wave progression, early transition Confirmed by Ivan Gongora ([id number]) on 08/11/2018 3:37:35 PM Referred By: Ivan Gongora Confirmed By:Ivan Gongora
[2018-08-11 16:11] LABS: PLATELET COUNT 161 10^3/uL (150-400)
[2018-08-11] MEDS ORDERED: ONDANSETRON DISINTEGRATING 4 MG TAB PO PRN (17:21)
[2018-08-11] MEDS ORDERED: ONDANSETRON 4 MG/2 ML VIAL IVP PRN (17:21)
--- NOTE | 2018-08-11 17:24 | PDGENHP ---
History and Physical - Chief Complaint chest pain - History of Present Illness 88 yo F with PMH of A fib, HTN, HLD and dementia presenting via ambulance form home with complaints of left sided chest pain. She notes that the pain began this morning while she was sitting reading. Her went to the kitchen to get them both a cookie when she developed sudden onset of left sided severe chest pain. She alerted her and he called 911. She notes that sxs lasted until she got into the ambulance at least, which she thinks took about 15 -30minutes. She was given aspirin and SL nitro in the ambulance and by the time she arrived in ER it had resolved and has not come back. She has had multiple hospitalizations and ER visits for syncope in the past, but she does not recall having chest pain before. She notes that prior to this pain she was feeling quite well, other than being hungry. History Information - Allergies/Home Medication List Allergies/Adverse Reactions: codeine [Codeine] Allergy (Unknown, Verified 08/11/18 15:24) morphine [Morphine] Allergy (Unknown, Verified 08/11/18 18:11) Itching Penicillins Allergy (Unknown, Verified 08/11/18 15:24) hydrocodone bitartrate [From Vicodin] Allergy (Verified 08/11/18 15:24) Home Medications: Acetaminophen [Tylenol ES 500 mg (*)] 500 mg PO Q6 PRN 08/11/18 [Last Taken Unknown] Aspirin EC [Aspirin EC 81 mg (*)] 81 mg PO DAILY 08/11/18 [Last Taken Unknown] Carvedilol 12.5 mg PO BIDMEAL 08/11/18 [Last Taken 08/11/18 07:00] Herbals/Supplements -Info Only 1 ea PO DAILY 08/11/18 [Last Taken 08/11/18] Lisinopril [Zestril 10 mg (*)] 10 mg PO BIDMEAL 08/11/18 [Last Taken 08/11/18 07 :00] Multivitamins [Multivitamin (*)] 1 each PO DAILY 08/11/18 [Last Taken 08/11/18] Omeprazole 20 mg PO DAILYAC 08/11/18 [Last Taken 08/11/18] Ranitidine HCl 150 mg PO HS 08/11/18 [Last Taken 08/10/18] Simvastatin 40 mg PO HS 08/11/18 [Last Taken 08/10/18] Trimethoprim [TRIMPEX 100MG (*)] 100 mg PO DAILY 08/11/18 [Last Taken 08/11/18] celeCOXIB [Celecoxib] 100 mg PO BID@,18 08/11/18 [Last Taken 08/11/18 07:00] I have personally reviewed and updated: family history, medical history, social history, surgical history - Past Medical History atrial fibrillation, cancer (breast), dementia, GERD, hypertension, hyperlipidemia Additional medical history: Aortic insufficiency. Peptic ulcer disease. Osteoarthritis. chronic interstitial cystitis--treated with multiple abx in the past - Surgical History Reports: cancer surgery (lumpectomy), hysterectomy, spinal surgery (x 2) Additional surgical history: bladder surgery. Rotator cuff - Family History Additional family history: colon cancer and breast cancer both her family - Social History Smoking Status: Never smoked Alcohol Use: None Drug Use: None Additional social history: lives independently with her currently, has 2 children Review of Systems Review of Systems: ROS: 10pt was reviewed & negative except for what was stated in HPI & below Physical Exam Physical Exam: Temp Pulse Resp BP Pulse Ox 36.7 C 99 16 149/86 H 93 08/11/18 15:21 08/11/18 16:00 08/11/18 16:00 08/11/18 16:00 08/11/18 16:00 Constitutional: no apparent distress, appears nourished Eyes: PERRL, anicteric sclera Ears, Nose, Mouth, Throat: moist mucous membranes, hearing normal Cardiovascular: regular rate and rhythym, no murmur, rub, or gallop, No edema Respiratory: no respiratory distress, no rales or rhonchi, clear to auscultation Gastrointestinal: normoactive bowel sounds, soft, non-tender abdomen Genitourinary: no bladder tenderness Skin: warm, normal color Musculoskeletal: full muscle strength Neurologic: AAOx3 Psychiatric: interacting appropriately, poor memory Lab Data & Imaging Review 08/11/18 15:18 08/11/18 15:18 WBC 7.98 10^3/uL (3.80-9.50) 08/11/18 15:18 RBC 4.46 10^6/uL (4.18-5.33) 08/11/18 15:18 Hgb 15.4 g/dL (12.6-16.3) 08/11/18 15:18 Hct 46.2 % (38.0-47.0) 08/11/18 15:18 MCV 103.6 fL (81.5-99.8) H 08/11/18 15:18 MCH 34.5 pg (27.9-34.1) H 08/11/18 15:18 MCHC 33.3 g/dL (32.4-36.7) 08/11/18 15:18 RDW 13.2 % (11.5-15.2) 08/11/18 15:18 Plt Count 161 10^3/uL (150-400) 08/11/18 15:18 MPV 11.3 fL (8.7-11.7) 08/11/18 15:18 Neut % (Auto) 57.9 % (39.3-74.2) 08/11/18 15:18 Lymph % (Auto) 29.3 % (15.0-45.0) 08/11/18 15:18 [place] % (Auto) 9.6 % (4.5-13.0) 08/11/18 15:18 Eos % (Auto) 2.3 % (0.6-7.6) 08/11/18 15:18 Baso % (Auto) 0.5 % (0.3-1.7) 08/11/18 15:18 Nucleat RBC Rel Count 0.0 % (0.0-0.2) 08/11/18 15:18 Absolute Neuts (auto) 4.62 10^3/uL (1.70-6.50) 08/11/18 15:18 Absolute Lymphs (auto) 2.34 10^3/uL (1.00-3.00) 08/11/18 15:18 Absolute Monos (auto) 0.77 10^3/uL (0.30-0.80) 08/11/18 15:18 Absolute Eos (auto) 0.18 10^3/uL (0.03-0.40) 08/11/18 15:18 Absolute Basos (auto) 0.04 10^3/uL (0.02-0.10) 08/11/18 15:18 Absolute Nucleated RBC 0.00 10^3/uL (0-0.01) 08/11/18 15:18 Immature Gran % 0.4 % (0.0-1.1) 08/11/18 15:18 Immature Gran # 0.03 10^3/uL (0.00-0.10) 08/11/18 15:18 D-Dimer 0.53 ug/mLFEU (0.00-0.50) H 08/11/18 15:18 Sodium 135 mEq/L (135-145) 08/11/18 15:18 Potassium 4.6 mEq/L (3.5-5.2) 08/11/18 15:18 Chloride 98 mEq/L (97-110) 08/11/18 15:18 Carbon Dioxide 25 mEq/l (22-31) 08/11/18 15:18 Anion Gap 12 mEq/L (6-14) 08/11/18 15:18 BUN 23 mg/dL (7-23) 08/11/18 15:18 Creatinine 1.0 mg/dL (0.6-1.0) 08/11/18 15:18 Estimated GFR 52 08/11/18 15:18 Glucose 92 mg/dL (70-100) 08/11/18 15:18 Calcium 9.6 mg/dL (8.5-10.4) 08/11/18 15:18 POC Troponin I 0.00 ng/mL (0.00-0.08) 08/11/18 15:30 Visualized and Interpreted Chest x-ray results: Yes Chest X-Ray results: no infiltrate Visualized and Interpreted EKG results: Yes EKG Interpretation: Positive for: normal sinsus rhythm Assessment & Plan Assessment: Chest pain (Acute) 88 yo F with PMH of HTN, HLD, A fib, dementia presenting with chest pain # chest pain: atypical by description though patient with RF including hx of HTN and HLD. She is currently chest pain free. She is followed by Dr. Kenney at [facility] for her a fib. At this time, will trend troponin overnight, serial ecg, telemetry monitoring. Suspect that given her dementia and advanced age that she would not benefit from aggressive management even if this did represent ACS--she has been talking with her PCP about transitioning to more comfort type care on review of [place] records. Will defer further ischemic evaluation for now and ask cardiology to evaluate her in the morning to determine if they believe further testing/intervention would be of benefit. # a fib: currently appears to be in SR, continue coreg and aspirin, monitoring on tele # dementia: relatively mild but issues with memory, she is followed for that by her PCP, MMSE last reported as 25 by PCP, patient doing mind exercises # chronic interstitial cystitis/recurrent UTI: has been followed by urology and treated with multiple different abx, both for acute issues and as a chronic suppressive attempt, currently on trimethoprim as chronic suppression and without any active urinary complaints # GERD: continue ranitidine and omeprazole # valvular heart disease: with hx of mild MR, mild to mod AR, mild to mod TR and no hx of CHF or evidence of on exam # hx of breast cancer # observation status # PCP Nehal Rodriguez, [employer] [place] # DNR--per reports from PCP, did not review with patient as limited by her dementia # Patient new to my care. Old records including [place] were reviewed and summarized as above. Care plan reviewed with ER doctor, further hx obtained from patients present at bedside.
[2018-08-11] MEDS: LISINOPRIL 10 MG TAB PO SCH (18:21)
[2018-08-11] MEDS: CARVEDILOL 6.25 MG TAB PO SCH (18:21)
[2018-08-11] MEDS: ACETAMINOPHEN 325 MG TAB PO PRN (20:59)
[2018-08-11] MEDS ORDERED: ATORVASTATIN CALCIUM 20 MG TAB PO SCH (21:00)
[2018-08-11] MEDS ORDERED: FAMOTIDINE 20 MG TAB PO SCH (21:00)
[2018-08-12] MEDS: ACETAMINOPHEN 325 MG TAB PO PRN ×2 (06:09→12:27)
[2018-08-12] MEDS ORDERED: PANTOPRAZOLE SODIUM 40 MG TAB PO SCH (07:30)
[2018-08-12] MEDS: CARVEDILOL 6.25 MG TAB PO SCH (07:56)
[2018-08-12] MEDS: LISINOPRIL 10 MG TAB PO SCH (08:00)
[2018-08-12] MEDS ORDERED: ASPIRIN 325 MG TAB PO SCH (09:00)
[2018-08-12] MEDS ORDERED: MULTIVITAMINS 1 EACH TAB PO SCH (09:00)
[2018-08-12] MEDS ORDERED: TRIMETHOPRIM 100 MG TAB PO SCH (09:00)
--- NOTE | 2018-08-12 14:53 | ASMTCMCOM ---
CM Note CM Note Notes: Pts case discussed in tx rounds. Pt is a 88 y/o female admitted for chest pain. CM met w/ pt and for dispo planning. They currently live in their home independently. They have been trying to get into a senior independent living facility. They are on a wait list at [facility], [facility] and [facility] in [place]. They are looking for a 2 bedroom apartment. Pt uses a cane occasionally. However, pt reports that she moves around pretty well. Pt reports that she does not have any d/c needs. Pt has two sons that live in two different states. CM available for changes. Plan: Independent Date Signed: 08/12/2018 02:51 PM Electronically Signed By:IGGY Navarro
[2018-08-12 15:37] VITALS: BP 142/74
--- NOTE | 2018-08-12 16:18 | GCON ---
[f rep st] CONSULTATION DATE OF CONSULTATION: 08/11/2018 ADMISSION DIAGNOSIS: Chest pain. We were asked by hospitalist to consult regarding chest pain. HISTORY OF PRESENT ILLNESS: The patient is an 88-year-old female who presented to the emergency room after having an episode of chest pain. She reports that this came on after eating potato soup and r eturning home. The chest discomfort was rated initially 8 and then reduced to a 4 on the scale of 10 . 911 was called and upon their arrival, her chest pain had subsided. She was given aspirin and sub lingual nitroglycerin and the pain did completely resolve. Upon her arrival to the emergency room, s he was pain free and has remained pain free since that time. She does have past medical history of a trial fibrillation, hypertension, hyperlipidemia, and mild dementia. At the time of my visit, she is up in the chair visiting with her and is very lucid with her conversation. ALLERGIES: Codeine, morphine, penicillin, hydrocodone titrate from Vicodin. HOME MEDICATIONS: Tylenol extended Strength 500 mg every 6 hours as needed, aspirin enteric-coated 8 1 mg daily, carvedilol 12.5 mg twice daily. Herbal supplements daily, lisinopril 10 mg twice daily, multivitamin daily, omeprazole 20 mg daily in the morning, Ranitidine 150 mg at bedtime, simvastatin 40 mg at bedtime, trimpex 100 mg daily, celecoxib 100 mg twice daily. PAST MEDICAL HISTORY: Atrial fibrillation, dementia, hypertension, hyperlipidemia, GERD, history of breast cancer, aortic insufficiency, peptic ulcer disease. PAST SURGICAL HISTORY: Lumpectomy, hysterectomy, spinal surgery. FAMILY HISTORY: Breast cancer and colon cancer. SOCIAL HISTORY: She denies use of alcohol, illicit drugs, and tobacco use. She does live independen y with her in a trilevel home. She has 2 sons. REVIEW OF SYSTEMS: A 10-point review of systems is negative except for listed in the HPI. PHYSICAL EXAMINATION: CONSTITUTIONAL: No apparent distress. EYES: PERRLA. EARS, NOSE, THROAT: M ucous membranes are moist. CARDIOVASCULAR: Heart rate is regular. No murmurs, rubs, gallops. RESP IRATORY: No shortness of breath, rales or rhonchi. Clear to auscultation. GASTROINTESTINAL: Bowel sounds are active in all 4 quadrants. Abdomen is soft and nontender. GENITOURINARY: No bladder te nderness. SKIN: Warm and dry. MUSCULOSKELETAL: Full muscle strength. NEUROLOGIC: Alert and orie nted x3. PSYCHIATRIC: Appropriate interaction. INVESTIGATION: Chest x-ray on 08/11/2018 showed no active cardiopulmonary disease. EKG on 9 showed borderline left axis deviation, early R-wave progression. LABORATORY DATA: 08/11/2018, white blood count 7.98, hemoglobin 15.4, hematocrit 46.2 Coagulation, D-dimer 0.53. Chemistry, sodium 135, potassium 4.6, creatinine 1.0, BUN 23, glucose 92, and troponin x2 is 0.012. IMPRESSION AND PLAN: The patient has had no chest pain since arrival to the hospital nearly 24 hours previously. Her telemetry shows a sinus rhythm with a rate of 70 beats per minute. She had no sign ificant abnormal lab findings. Her troponin was negative x2. It is felt that her chest discomfort w as likely noncardiac. No additional testing is needed at this time. She does have a history of gastroesophageal reflux disease. She and her report they had been out for lunch previous to the onset of the chest discomfort yesterday. She had potato soup. She do es compliantly take her omeprazole 20 mg in the morning and ranitidine 150 mg at night. RECOMMENDATION: Continue with current medications. Should she have further problems, consideration for additional testing. She has designated herself as a do not resuscitate. They do not wish any in vasive testing or treatment. At this time, she is stable and should be stable for discharge. This was discussed with the hospitalist, Dr. Evelia Diane. Thank you very much for asking us to be a part of this very nice lady's care. /[id number]/[facility]
--- NOTE | 2018-08-13 04:41 | GDS ---
[f rep st] DISCHARGE SUMMARY DISCHARGE DIAGNOSES: 1. Chest pain. 2. Atrial fibrillation. 3. Dementia. 4. Breast cancer. HISTORY: The patient is an 88-year-old female, presented to emergency room after 1 episode of chest pain. 911 was called. Pain resolved with aspirin and sublingual nitroglycerin in the emergency room . She has been chest pain-free since that time. Her troponins are negative. Cardiology was consult ed. The decision was made to manage medically. Cardiology had a low suspicion this is cardiac and g iven her advanced age and dementia, they did not want to aggressively pursue it. DISCHARGE MEDICATIONS: Please see computerized record for full detailed list. There were no new med ications given at time of hospital discharge. ADDITIONAL DISCHARGE INSTRUCTIONS: Follow up with primary care, Dr. Nehal Rodriguez. /[id number]/[facility] [place]
== END 2018-08-12 16:45 | disposition home or self-care (01) ==
LOC: EDUNIT# → F2W 17:58
PROVIDERS: ADMIT Internal Medicine; ATTEND Internal Medicine
DX: R07.9 Chest pain, unspecified (principal); I48.91 Unspecified atrial fibrillation; F03.90 Unspecified dementia, unspecified severity, without behavioral disturbance, psychotic disturbance, mood disturbance, and anxiety; I10 Essential (primary) hypertension; Z85.3 Personal history of malignant neoplasm of breast
CPT/HCPCS: 71046; 93005; 99285; G0378; 84484-ER

== ENCOUNTER 2018-10-01 18:02 | Emergency (ER) | payer OTHER, MEDICARE | END 2018-10-01 20:56 | disposition home or self-care (01) ==

== ENCOUNTER 2018-10-16 01:51 | Inpatient (IN) | payer OTHER, MEDICARE | END 2018-10-19 14:10 | LOC: F3N 14:10 ==